=== PATIENT | male | born 1945 | race Caucasian/White ===

== ENCOUNTER 2018-08-15 00:58 | Emergency (ER) | payer OTHER ==
[2018-08-15 01:14] VITALS: TEMP 98.2; BMI 26.6
--- NOTE | 2018-08-15 03:00 | PDOC ---
History of Present Illness - General Chief Complaint: Back Pain Stated Complaint: LOW BACK PAIN Time Seen by Provider: 08/15/18 02:59 History Source: Patient Exam Limitations: No Limitations - History of Present Illness Initial Comments: Pt is a 73 yo M, with PMH of DM, HTN, HLD, CVA, and CKD stage 4, who is presenting with complaints of lower back pain after standing from his recliner. Pt states just before presentation, he was attempting to stand up from out of his recliner, and felt a "pulling" sensation through his lower back. The pt was able to use his cane to stand up, and called EMS as he felt very uncomfortable from pain. He did not take any medications prior to arrival. Pt states a few weeks ago, he fell, hitting the top of his head. At [facility], he received MRIs of the head and spine, which showed only arthritic and chronic disc changes. Because of the chronic arthritis, he was concerned that the strain in his back may be related today. Pt denies any recent fevers/chills, headache, vision changes, syncope, chest pain, palpitations, SOB, nausea/vomiting, abdominal pain , urinary symptoms, diarrhea/constipation, or leg swelling. Pt lives in assisted living ([facility]) on his own. Social: Pt denies any alcohol or drug use. Remote hx of smoking (~20 years ago). Pt denies any recent travel or sick contacts. Surgical: repair of perforated colon (remote hx) Family: no relevant history 08/15/18 04:59 Past History - Travel Traveled outside of the country in the last 30 days: No Close contact w/someone who was outside of country & ill: No - Past Medical History Allergies/Adverse Reactions: Allergies Allergy/AdvReac Type Severity Reaction Status Date / Time Sulfa (Sulfonamide Allergy Verified 08/15/18 02:59 Antibiotics) Home Medications: Ambulatory Orders Acetaminophen 325 mg PO QID PRN 08/15/18 Amlodipine Besylate 10 mg PO DAILY 08/15/18 Ammonium Lactate Lotion [Lac-Hydrin 12% Lotion -] 1 applic TP BID 08/15/18 Aspirin [ASA -] 81 mg PO DAILY 08/15/18 Atorvastatin Ca [Lipitor] 10 mg PO HS 08/15/18 Clopidogrel Bisulfate [Plavix] 75 mg PO DAILY 08/15/18 Clotrimazole [Lotrimin 1% Solution -] 1 applic TP BID 08/15/18 Cyclobenzaprine HCl [Flexeril 10 mg] 10 mg PO DAILY PRN #14 tablet 08/15/18 Folic Acid 1 mg PO DAILY 08/15/18 Guaifenesin [Siltussin SA] 300 mg PO QID PRN 08/15/18 Hydralazine HCl 25 mg PO TID 08/15/18 Insulin Aspart [Novolog] 100 unit SQ AC PRN 08/15/18 Labetalol HCl 100 mg PO BID 08/15/18 Losartan Potassium [Cozaar -] 25 mg PO DAILY 08/15/18 Omeprazole 20 mg PO DAILY 08/15/18 Silodosin [Rapaflo] 8 mg PO DAILY 08/15/18 Triamcinolone Acetonide [Kenalog] 63 gm TP BID 08/15/18 Vortioxetine Hydrobromide [Trintellix] 10 mg PO DAILY 08/15/18 COPD: No Dementia: Yes Diabetes: Yes HTN: Yes Hypercholesterolemia: Yes Other medical history: CKD - Surgical History Abdominal Surgery: Yes (perforated colon) GI Surgery: Yes (perforated colon) Neurologic Surgery: No Orthopedic Surgery: No - Suicide/Smoking/Psychosocial Hx Smoking History: Never smoked Have you smoked in the past 12 months: No Information on smoking cessation initiated: No Hx Alcohol Use: No Drug/Substance Use Hx: No Review of Systems - Review of Systems Able to Perform ROS?: Yes Is the patient limited [place] proficient: No Constitutional: Yes: Weight Stable. No: Chills, Diaphoresis, Fever, Loss of Appetite, Weakness HEENTM: No: Blurred Vision, Double Vision, Nose Congestion, Hearing Loss, Difficulty Swallowing Respiratory: No: Cough, Orthopnea, Shortness of Breath Cardiac (ROS): No: Chest Pain, Edema, Irregular Heart Rate, Lightheadedness, Palpitations, Syncope, Chest Tightness ABD/GI: No: Abdominal Distended, Constipated, Diarrhea, Nausea, Poor Appetite, Poor Fluid Intake, Vomiting, Abdominal cramping : No: Burning, Dysuria, Frequency, Hematuria, Pain, Urgency Musculoskeletal: Yes: See HPI, Back Pain. No: Joint Pain, Joint Swelling, Muscle Pain, Muscle Weakness, Neck Pain Integumentary: No: Rash Neurological: No: Headache, Numbness, Paresthesia, Tingling, Weakness, Unsteady Gait, Ataxia, Dizziness Psychiatric: No: Sleep Pattern Change, Change in Appetite Endocrine: No: Increased Urine, Change in Weight Hematologic/Lymphatic: No: Anemia, Blood Clots, Easy Bleeding, Easy Bruising All Other Systems: Reviewed and Negative *Physical Exam - Vital Signs Last Vital Signs Temp Pulse Resp BP Pulse Ox 98.2 F 66 18 146/61 98 08/15/18 01:13 08/15/18 01:13 08/15/18 01:13 08/15/18 01:13 08/15/18 01:13 - Physical Exam General Appearance: Yes: Nourished, Appropriately Dressed, Apparent Distress HEENT: positive: EOMI, JONAH, Normal ENT Inspection, Normal Voice, Pharynx Normal , Hearing Grossly Normal. negative: Scleral Icterus (R), Scleral Icterus (L), Pharyngeal Erythema, Tonsillar Exudate, Tonsillar Erythema, Rhinorrhea Neck: positive: Trachea midline, Normal Thyroid, Supple. negative: Tender, Rigid, Decreased range of motion, Lymphadenopathy (R), Lymphadenopathy (L), Rigidity Respiratory/Chest: positive: Lungs Clear, Normal Breath Sounds. negative: Chest Tender, Respiratory Distress, Accessory Muscle Use, Crackles, Wheezing Cardiovascular: positive: Regular Rhythm, Regular Rate, S1, S2. negative: Edema , JVD, Murmur Vascular Pulses: Carotid (R): 4+, Carotid (L): 4+ Gastrointestinal/Abdominal: positive: Normal Bowel Sounds, Flat, Soft. negative : Tender, Organomegaly, Pulsatile Mass, Distended, Guarding, Rebound Rectal Exam: positive: deferred Lymphatic: negative: Adenopathy, Tenderness Musculoskeletal: positive: Normal Inspection, Decreased Range of Motion ( minimal flexion and extension at the hip due to spasm), Muscle Spasm (spasm in lower back). negative: CVA Tenderness, Vertebral Tenderness (no midline spinal tenderness, no CVA tenderness. ) Extremity: positive: Normal Capillary Refill, Normal Inspection, Normal Range of Motion, Pelvis Stable. negative: Tender, Pedal Edema Integumentary: positive: Normal Color, Dry, Warm. negative: Jaundice, Clammy, Diaphoresis, Rash Neurologic: positive: pin chaser II-XII NML intact, Fully Oriented, Alert, Normal Mood/ Affect, Normal Response, Motor Strength 5/5, Facial Droop (mild L sided facial droop (residual deficit from prior CVA, per pt)). negative: Numbness, Sensory Deficit Moderate Sedation - Procedure Monitoring Vital Signs: Procedure Monitoring Vital Signs Temperature 98.2 F 08/15/18 01:13 Pulse Rate 66 08/15/18 01:13 Respiratory Rate 18 08/15/18 01:13 Blood Pressure 146/61 08/15/18 01:13 O2 Sat by Pulse Oximetry (%) 98 08/15/18 01:13 Medical Decision Making - Medical Decision Making Pt was seen at bedside, also will be seen by attending Dr. Garay. Pt presenting with complaints of lower back pain after standing from his recliner. Pt states just before presentation, he was attempting to stand up from out of his recliner , and felt a "pulling" sensation through his lower back. The pt was able to use his cane to stand up, and called EMS as he felt very uncomfortable from pain. He did not take any medications prior to arrival. Pt states a few weeks ago, he fell, hitting the top of his head. At [facility], he received MRIs of the head and spine, which showed only arthritic and chronic disc changes. Because of the chronic arthritis, he was concerned that the strain in his back may be related today. Pt denies any recent fevers/chills, headache, vision changes, syncope, chest pain, palpitations, SOB, nausea/vomiting, abdominal pain, urinary symptoms , diarrhea/constipation, or leg swelling. PE showed stable vitals, pt sitting up in the bed with back straight. Muscle spasm induced on exam. No cervical or midline spinal tenderness. Muscle strength and sensation intact in all extremities. Heart and lung sounds clear. Considering muscle spasm vs lumbar muscular strain. Minimal concern for fracture , due to mechanism and pt had recent MRI of spine and head with only chronic arthritic changes. Provided 650 mg PO tylenol, 5 mg PO valium, and lidoderm patch for improvement of pain and spasm. Will continue to reassess pt and monitor for symptomatic improvement. 08/15/18 03:40 Pt mobility improving, still experiencing some spasms. Will provide one dose of 15 mg IM toradol for improvement of pain. Will reassess. 08/15/18 04:56 08/15/18 05:14 Pt still with difficulty ambulating (not normal for pt baseline). Ordered lumbosacral x-ray to r/o fracture. 08/15/18 06:05 X-ray (read with Dr. Garay in ER) showed no obvious acute fractures, appears to be arthritic changes. Sending flexeril to pt pharmacy. Pt can be discharged to home with follow-up. Pt advised to follow-up with PCP in 1-2 days. Strict return precautions provided with pt understanding. 08/15/18 07:03 *DC/Admit/Observation/Transfer Diagnosis at time of Disposition: Back spasm Lumbar strain Qualifiers: Encounter type: initial encounter Qualified Code(s): S39.012A - Strain of muscle, fascia and tendon of lower back, initial encounter - Discharge Dispostion Disposition: HOME Condition at time of disposition: Improved Decision to Admit order: No - Prescriptions Prescriptions: Cyclobenzaprine HCl [Flexeril 10 mg] 10 mg PO DAILY PRN #14 tablet PRN Reason: Back Pain - Referrals Referrals: Vinayak Mcclendon MD [Primary Care Provider] - [facility] [place] [facility] [place] [Provider Group] - Patient Instructions Printed Discharge Instructions: DI for Back Strain or Sprain Additional Instructions: You were seen in the ER today for back pain. The results of your imaging today showed chronic arthritic changes in your back. Please follow-up with your primary care doctor within 1-2 days to discuss your visit and make sure your symptoms have improved. Please return to the ER if you have any worsening pain, development of fevers or chills, numbness or tingling in your extremities, bowel or urine incontinence, loss of consciousness, inability to tolerate food or fluids, or any other concerns. I have sent flexeril to your pharmacy for back spasm. This medication may make you drowsy as we discussed. Please take this medication as prescribed. - Post Discharge Activity
[2018-08-15] MEDS ORDERED: CYCLOBENZAPRINE HCL 10 MG TABLET (FP) PO ONE (03:26)
[2018-08-15] MEDS ORDERED: ACETAMINOPHEN 325 MG TABLET (FP) PO ONE (03:26)
[2018-08-15] MEDS ORDERED: LIDOCAINE 5% TOPICAL PATCH TP ONE (03:40)
[2018-08-15] MEDS ORDERED: diazePAM 5 MG TABLET PO ONE (03:40)
--- NOTE | 2018-08-15 04:50 | PDOC ---
Attending Attestation - Resident Resident Name: Lisa Fung - ED Attending Attestation I have performed the following: I have examined & evaluated the patient, The case was reviewed & discussed with the resident, I agree w/resident's findings & plan - HPI HPI: 08/15/18 05:30 73YOM, with a significant past medical history of dementia, CVA, CKD, HTN, who presents to the emergency department with, lower back pain. Patient notes he was trying to get up from a reclining chair when he felt a pulling sensation in his lower back, prompting him to call EMS. Patient was recently evaluated at [facility] where he received a MRI of his back with only pertinent finding of arthritic changes, He denies any recent fevers, chills, headache or dizziness. He denies any recent nausea, vomit, diarrhea or constipation. He denies any recent chest pain or shortness of breath. He denies any recent dysuria, frequency, urgency or hematuria. Allergies: Sulfa Primary Care Physician: Dr. Mcclendon - Physicial Exam PE: 08/15/18 05:30 NAD, well appearing, MMM, nl conjunctiva, anicteric; neck supple. lungs clear, RRR, abdomen soft nontender. +lower lumbosacral TTP, +spasms. GARCIA x4, no focal neuro deficits. No peripheral edema. normal color for ethnicity, WWP. - Medical Decision Making 08/15/18 05:31 hpi as documented. VS wnl. analgesia with topical lido, toradol, tylenol and valium for spasms improved movement, improved ROM no focal neuro deficits. no red flag sx to suggest cord pathology. no trauma, so doubt fx. most likely msk. Xray L-S spine: degenerative changes, no compression deformities. though limited views were obtained. however doubt fx, as no trauma or fall. rx tylenol PRN pain, flexeril for muscle spasm and topical lidoderm Pt informed of my clinical impression, treatment recommendations and disposition plan. All questions answered to patient's satisfaction and expressed understanding and comfort with this. Reasons for returning to the ED sooner discussed with the patient otherwise, follow up with primary care physician. At the time of discharge, the patient is alert, clinically improved, tolerating po and verbalizes understanding of instructions. Patient does not suffer from an acute life-threatening medical condition at this time she is safe for outpatient follow-up. 08/15/18 06:19 08/15/18 23:07
[2018-08-15] MEDS ORDERED: KETOROLAC TROMETHAMINE 15 MG/ML VIAL IM ONE (04:52)
[2018-08-15 08:08] VITALS: BP 159/80; PULSE 72
[2018-08-15] MEDS ORDERED: LIDOCAINE PATCH REMOVAL MC SCH (22:00)
== END 2018-08-15 08:00 | disposition home or self-care (01) ==
LOC: JER 00:58
PROC: 3E0333Z Introduction of Anti-inflammatory into Peripheral Vein, Percutaneous Approach (ICD-10-PCS; principal; 2018-08-15)
DX: M62.830 Muscle spasm of back (principal); I10 Essential (primary) hypertension; E11.9 Type 2 diabetes mellitus without complications; E78.00 Pure hypercholesterolemia, unspecified; Z86.73 Personal history of transient ischemic attack (TIA), and cerebral infarction without residual deficits
CPT/HCPCS: 72100-TC-FY; 96372; 99282-25

== ENCOUNTER 2019-04-03 20:53 | Emergency (ER) | payer OTHER ==
[2019-04-03 21:28] VITALS: TEMP 98.4; BMI 25.6
--- NOTE | 2019-04-03 21:31 | PDOC ---
History of Present Illness - General Chief Complaint: Diarrhea Stated Complaint: DIARRHEA Time Seen by Provider: 04/03/19 21:30 History Source: Patient Exam Limitations: No Limitations - History of Present Illness Initial Comments: Pt is a 73 yo M, with PMH of DM, HTN, HLD, CVA, CKD, and depression, who is presenting via EMS from half-way for complaints of 1 episode of loose brown stool. Pt states he was seen at [facility] last night, after a few days of constipation and straining. Pt states he was given an enema an mag citrate, which gave him a loose brown BM this morning, relieving his abdominal pain. Pt states he was sent to the ER from the half-way, as he did not wish to get up from the bed and take his medication, due to concerns that he may have diarrhea. Pt denies any fevers/chills, headache, vision changes, syncope, chest pain, palpitations, SOB, nausea/vomiting, abdominal pain, urinary symptoms , blood in the stool, or leg swelling. Allergies: NKDA PCP: Danelle Social: Pt denies any cigarette, alcohol, or drug use. Pt denies any recent travel or sick contacts. Surgical: perforated colon repair (remote) Family: no relevant history. 04/04/19 00:10 Past History - Travel Traveled outside of the country in the last 30 days: No Close contact w/someone who was outside of country & ill: No - Past Medical History Allergies/Adverse Reactions: Allergies Allergy/AdvReac Type Severity Reaction Status Date / Time Sulfa (Sulfonamide Allergy Verified 08/15/18 02:59 Antibiotics) Home Medications: Ambulatory Orders Acetaminophen 325 mg PO QID PRN 08/15/18 Amlodipine Besylate 10 mg PO DAILY 08/15/18 Ammonium Lactate Lotion [Lac-Hydrin 12% Lotion -] 1 applic TP BID 08/15/18 Aspirin [ASA -] 81 mg PO DAILY 08/15/18 Atorvastatin Ca [Lipitor] 10 mg PO HS 08/15/18 Clopidogrel Bisulfate [Plavix] 75 mg PO DAILY 08/15/18 Clotrimazole [Lotrimin 1% Solution -] 1 applic TP BID 08/15/18 Cyclobenzaprine HCl [Flexeril 10 mg] 10 mg PO DAILY PRN #14 tablet 08/15/18 Folic Acid 1 mg PO DAILY 08/15/18 Guaifenesin [Siltussin SA] 300 mg PO QID PRN 08/15/18 Hydralazine HCl 25 mg PO TID 08/15/18 Insulin Aspart [Novolog] 100 unit SQ AC PRN 08/15/18 Labetalol HCl 100 mg PO BID 08/15/18 Losartan Potassium [Cozaar -] 25 mg PO DAILY 08/15/18 Omeprazole 20 mg PO DAILY 08/15/18 Silodosin [Rapaflo] 8 mg PO DAILY 08/15/18 Triamcinolone Acetonide [Kenalog] 63 gm TP BID 08/15/18 Vortioxetine Hydrobromide [Trintellix] 10 mg PO DAILY 08/15/18 COPD: No Dementia: Yes Diabetes: Yes HTN: Yes Hypercholesterolemia: Yes - Surgical History Abdominal Surgery: Yes (perforated colon) GI Surgery: Yes (perforated colon) Neurologic Surgery: No Orthopedic Surgery: No - Immunization History Immunization Up to Date: No - Suicide/Smoking/Psychosocial Hx Smoking History: Former smoker Have you smoked in the past 12 months: No If you are a former smoker, when did you quit?: 1989 Information on smoking cessation initiated: No Hx Alcohol Use: No Drug/Substance Use Hx: No Abd/GI Specific PMHX - Complaint Specific PMHX Colitis: Yes Diverticulitis: No Gall Bladder Disease: No Irritable Bowel Synd (IBS): No GI Ulcer Disease: No Review of Systems - Review of Systems Able to Perform ROS?: Yes Is the patient limited [place] proficient: No Constitutional: Yes: Weight Stable. No: Chills, Diaphoresis, Fever, Loss of Appetite, Malaise, Weakness HEENTM: No: Blurred Vision, Double Vision, Nose Congestion, Throat Pain, Throat Swelling, Difficulty Swallowing Respiratory: No: Cough, Orthopnea, Shortness of Breath Cardiac (ROS): No: Chest Pain, Edema, Irregular Heart Rate, Lightheadedness, Palpitations, Syncope, Chest Tightness ABD/GI: Yes: See HPI, Constipated, Diarrhea. No: Abdominal Distended, Nausea, Poor Appetite, Poor Fluid Intake, Vomiting, Abdominal cramping : No: Burning, Dysuria, Frequency, Flank Pain, Pain, Urgency Musculoskeletal: No: Back Pain, Joint Pain, Muscle Pain, Muscle Weakness Integumentary: No: Rash Neurological: No: Headache, Numbness, Weakness, Unsteady Gait, Dizziness Psychiatric: No: Sleep Pattern Change, Change in Appetite Endocrine: No: Increased Urine, Change in Weight Hematologic/Lymphatic: No: Anemia, Blood Clots, Easy Bleeding, Easy Bruising All Other Systems: Reviewed and Negative *Physical Exam - Vital Signs Last Vital Signs Temp Pulse Resp BP Pulse Ox 98.4 F 64 20 185/75 H 100 04/03/19 21:20 04/03/19 21:20 04/03/19 21:20 04/03/19 21:20 04/03/19 21:20 - Physical Exam Comments: HTN (185/75), pt afebrile. Pt in NAD, normal body habitus. Pt alert and oriented x3. tapper helper generally intact, muscular strength and sensation intact. No midline spinal tenderness, step-offs, or crepitus. Head normocephalic, atraumatic. Eyes PERRLA, EOMI. Oropharynx without erythema or exudates, no LAD b/l. No nasal congestion, hearing intact. Clear heart sounds, S1/S2, no JVD, b/l pedal edema, or heart murmur. Clear lung sounds, no respiratory distress, wheezes, crackles, or accessory muscle use. No abdominal or CVA tenderness to palpation, no rebound, no guarding. Abdomen soft, non-distended, and with normoactive bowel sounds. Abdominal exam benign. Skin without jaundice or rash. 04/04/19 00:29 Medical Decision Making - Medical Decision Making Pt was seen at bedside, also will be seen by attending Dr. Girard. Pt presenting with 1 episode of diarrhea post taking enema and Mg citrate. Pt was sent to ER due to not taking medications, but states his abdominal discomfort and constipation has entirely resolved. Pt also stated he had an IV left in his arm from [facility] which was removed here. Asymptomatic hypertension (no chest pain, headache, vision changes). Provided home dose of PO amlodipine and PO atorvastatin for improvement. Pt able to return to half-way. Called for ambulance and awaiting transport. 04/04/19 00:51 *DC/Admit/Observation/Transfer Diagnosis at time of Disposition: Diarrhea Qualifiers: Diarrhea type: infectious Qualified Code(s): A09 - Infectious gastroenteritis and colitis, unspecified - Discharge Dispostion Disposition: ASSISTED FACILITY Condition at time of disposition: Good Decision to Admit order: No - Referrals Referrals: Vinayak Mcclendon MD [Primary Care Provider] - - Patient Instructions Printed Discharge Instructions: DI for Diarrhea and Traveler's Diarrhea -- Adult Additional Instructions: You were seen in the ER today for diarrhea after taking an enema yesterday. We have provided some of your blood pressure and high cholesterol medications today. Please follow-up with your primary care doctor [and referral doctors] within 1-2 days to discuss your visit and make sure your symptoms have improved. Please return to the ER if you have any worsening abdominal pain, blood in your bowel movements, development of fevers or chills, loss of consciousness, inability to tolerate food or fluids, or any other concerns. - Post Discharge Activity
[2019-04-03] MEDS ORDERED: ATORVASTATIN CA 10 MG TABLET (FP) PO ONE (21:49)
[2019-04-03] MEDS ORDERED: amLODIPine BESYLATE 10 MG TABLET (FP) PO ONE (21:49)
[2019-04-03] MEDS ORDERED: amLODIPine BESYLATE 5 MG TABLET (FP) ONE (22:22)
[2019-04-03] MEDS ORDERED: ATORVASTATIN CA 40 MG TABLET (FP) ONE (22:25)
[2019-04-03] MEDS ORDERED: ATORVASTATIN CA 10 MG TABLET (FP) ONE (22:30)
--- NOTE | 2019-04-03 22:50 | PDOC ---
Documentation entered by Samson Tristan SCRIBE, acting as scribe for Patricio Peralta MD. Patricio Peralta MD: This documentation has been prepared by the Kun soriano Elijah, SCRIBE, under my direction and personally reviewed by me in its entirety. I confirm that the documentation accurately reflects all work, treatment, procedures, and medical decision making performed by me. Attending Attestation - Resident Resident Name: Lisa Fung - ED Attending Attestation I have performed the following: I have examined & evaluated the patient, The case was reviewed & discussed with the resident, I agree w/resident's findings & plan - HPI HPI: 04/03/19 22:40 Patient is a 73 year old male with a significant past medical history of dementia, DM, HTN, and HLD who presents to the ED with diarrhea. Patient was seen yesterday, received an enema and has had diarrhea since. Patient was discharged with an IV still in his arm. Allergies: Sulfa PCP: Dr. Mcclendon - Physicial Exam PE: 04/03/19 22:48 Patient is awake and alert, well-appearing, in no distress Normocephalic, atraumatic PERRLA, EOMI No scleral icterus mmm cta Abdomen is soft, nontender, nondistended, no palpable hernias - Medical Decision Making 04/03/19 22:48 Patient is a well-appearing 73-year-old male with multiple comorbidities who was referred from assisted living facility for several episodes of loose stools after receiving an enema as treatment of constipation. In the ER, patient is noted to be hypertensive (patient did not receive his antihypertensive medication prior to arrival), with serial abdominal exams revealing no focal tenderness to palpation. No acute issues are present. Patient will receive his p.m. hypertension medication and will be discharged to the assisted-living facility for further care.
[2019-04-04 00:09] VITALS: PULSE 72
[2019-04-04 01:45] VITALS: BP 185/71
== END 2019-04-04 01:52 ==
LOC: JER 20:53
DX: A09 Infectious gastroenteritis and colitis, unspecified (principal); Z87.891 Personal history of nicotine dependence; I10 Essential (primary) hypertension; E11.9 Type 2 diabetes mellitus without complications
CPT/HCPCS: 99281-25

== ENCOUNTER 2019-07-12 10:19 | Observation (INO) | payer OTHER ==
--- NOTE | 2019-07-12 10:38 | PDOC ---
History of Present Illness - General Stated Complaint: FALL Time Seen by Provider: 07/12/19 10:37 - History of Present Illness Initial Comments: 07/12/19 11:27 HPI: 73 y/o M with hx of IDDM, HTN, HLD, CVA, CKD, colonic perforation s/p partial colectomy and ostomy s/p reversal BIBEMS from assisted living facility for unwitnessed fall and possible syncopal event. Patient states he woke up on the floor after being down for an unknown amount of time. He states he thinks he tried getting up out of bed this morning and that his legs gave out under him but cannot recall for sure. A staff member found him and was able to help him up. He also reports LH today that he did not have yesterday. He does report some minimal pain at the back of his head but does not know if he hit his head. He denies headache, dizziness, neck pain, chest pain, seizure, tongue lac, incontinence, abd pain, n/v, dysuria, change in vision. He reports SOB at baseline and his breathing status is unchanged. He also reports left hand pain that he thinks may have gotten when he braced his fall. He also denies fever, chills, cough PMHx: as noted above ROS: as noted SHx: Denies tobacco use; no alcohol use; no rec drugs Allergies: sulfa PCP: Dr Vinayak Mcclendon ROS: GENERAL/CONSTITUTIONAL: No fever or chills. No weakness. HEAD, EYES, EARS, NOSE AND THROAT: No change in vision. No ear pain or discharge. No sore throat. CARDIOVASCULAR: No chest pain; +shortness of breath RESPIRATORY: No cough, wheezing, or hemoptysis. GASTROINTESTINAL: No nausea, vomiting, diarrhea or constipation. GENITOURINARY: No dysuria, frequency, or change in urination. MUSCULOSKELETAL: No joint or muscle swelling or pain. No neck or back pain. SKIN: No rash NEUROLOGIC: No headache, vertigo, loss of consciousness, or change in strength/ sensation. ENDOCRINE: No increased thirst. No abnormal weight change HEMATOLOGIC/LYMPHATIC: No anemia, easy bleeding, or history of blood clots. ALLERGIC/IMMUNOLOGIC: No hives or skin allergy. PE: GENERAL: Awake, alert, and fully oriented, no acute distress HEAD: No signs of trauma, normocephalic, atraumatic, nontender EYES: EOMI, sclera anicteric, conjunctiva clear ENT: Auricles normal inspection, hearing grossly normal, nares patent, oropharynx clear without exudates. Moist mucosa NECK: Normal ROM, no lymphadenopathy, no midline ttp LUNGS: No increased work of breathing, symmetrical chest rise, wheezes in BL upper lobes but no crackles HEART: Regular rate and rhythm, normal S1 and S2, systolic murmur, peripheral pulses 2+ and equal bilaterally. trace LE edema ABDOMEN: Soft, nondistended, nontender, normoactive bowel sounds. No guarding, no rebound. No masses. No CVAT EXTREMITIES: Normal inspection, Normal range of motion, no edema. No clubbing or cyanosis. NEUROLOGICAL: Cranial nerves II through XII grossly intact. Normal speech, normal gait, no focal sensorimotor deficits SKIN: Warm, Dry, normal turgor, no rashes or lesions noted Past History - Past Medical History Allergies/Adverse Reactions: Allergies Allergy/AdvReac Type Severity Reaction Status Date / Time Sulfa (Sulfonamide Allergy Verified 08/15/18 02:59 Antibiotics) Home Medications: Ambulatory Orders Acetaminophen 325 mg PO QID PRN 08/15/18 Amlodipine Besylate 10 mg PO DAILY 08/15/18 Ammonium Lactate Lotion [Lac-Hydrin 12% Lotion -] 1 applic TP BID 08/15/18 Aspirin [ASA -] 81 mg PO DAILY 08/15/18 Atorvastatin Ca [Lipitor] 10 mg PO HS 08/15/18 Clopidogrel Bisulfate [Plavix] 75 mg PO DAILY 08/15/18 Clotrimazole [Lotrimin 1% Solution -] 1 applic TP BID 08/15/18 Cyclobenzaprine HCl [Flexeril 10 mg] 10 mg PO DAILY PRN #14 tablet 08/15/18 Folic Acid 1 mg PO DAILY 08/15/18 Guaifenesin [Siltussin SA] 300 mg PO QID PRN 08/15/18 Hydralazine HCl 25 mg PO TID 08/15/18 Insulin Aspart [Novolog] 100 unit SQ AC PRN 08/15/18 Labetalol HCl 100 mg PO BID 08/15/18 Losartan Potassium [Cozaar -] 25 mg PO DAILY 08/15/18 Omeprazole 20 mg PO DAILY 08/15/18 Silodosin [Rapaflo] 8 mg PO DAILY 08/15/18 Triamcinolone Acetonide [Kenalog] 63 gm TP BID 08/15/18 Vortioxetine Hydrobromide [Trintellix] 10 mg PO DAILY 08/15/18 COPD: No Dementia: Yes Diabetes: Yes HTN: Yes Hypercholesterolemia: Yes - Surgical History Abdominal Surgery: Yes (perforated colon) GI Surgery: Yes (perforated colon) Neurologic Surgery: No Orthopedic Surgery: No - Immunization History Immunization Up to Date: No - Psycho Social/Smoking Cessation Hx Smoking History: Former smoker Have you smoked in the past 12 months: No If you are a former smoker, when did you quit?: 1989 Hx Alcohol Use: No Drug/Substance Use Hx: No ED Treatment Course - LABORATORY CBC & Chemistry Diagram: 07/12/19 11:38 07/12/19 11:38 Medical Decision Making - Medical Decision Making 07/12/19 11:38 73 y/o M with hx of IDDM, HTN, HLD, CVA, CKD, COPD, colonic perforation s/p partial colectomy and ostomy s/p reversal BIBEMS from assisted living facility for unwitnessed fall and possible syncopal event. BP 170/65 HR 67 O2 97%. PE with BL UL wheezing and new systolic murmur not previously documented and patient reporting has never been told of having. DDx including CVA, ACS, arrythmia, aortic stenosis, lyte abnormalities, infection -cbc, cmp, cardiac profile, ekg, cxr, ua, ct head 07/12/19 13:36 CT head: no acute pathology CXR: no acute pathology ekg: nsr, nl intervals, no pradip/d will admit for syncopal workup under Dr Echols to tele Discharge - Discharge Information Problems reviewed: Yes Clinical Impression/Diagnosis: Syncope Qualifiers: Syncope type: unspecified Qualified Code(s): R55 - Syncope and collapse Condition: Stable - Admission Yes - Follow up/Referral Referrals: Vinayak Mcclendon MD [Primary Care Provider] - - Patient Discharge Instructions - Post Discharge Activity
[2019-07-12] MEDS ORDERED: PT OWN MED DRAWER 7, Y5N ONE (11:44)
[2019-07-12 11:53] LABS: BASO % 0.8 % (0-2.0); EOS % 7.3 % (0-4.5); HEMATOCRIT 24.9 % (35.4-49); HEMOGLOBIN 8.7 GM/dL (11.7-16.9); LYMPH % 14.4 % (8-40); MCHC 34.9 g/dl (32.0-35.9); MEAN CELL VOLUME 94.5 fl (80-96); MEAN PLT VOLUME 9.2 fl (7.5-11.1); MONO % 7.4 % (3.8-10.2); NEUT % 70.1 % (42.8-82.8); PLATELET COUNT 101 K/MM3 (134-434); RBC 2.64 M/mm3 (4.00-5.60); RDW 15.4 % (11.9-15.9); WHITE BLOOD COUNT 5.2 K/mm3 (4.0-10.0)
[2019-07-12 12:10] LABS: INR 1.07 (0.83-1.09); PROTHROMBIN TIME (PATIENT) 12.6 SEC (9.7-13.0)
[2019-07-12 12:13] LABS: ACTIVATED PTT 34.3 SECONDS (25.2-36.5)
[2019-07-12 12:20] LABS: ALBUMIN 3.3 g/dl (3.4-5.0); BILIRUBIN,TOTAL 0.3 mg/dL (0.2-1); BLOOD UREA NITROGEN 50.1 mg/dL (7-18); CALCIUM 8.5 mg/dL (8.5-10.1); POTASSIUM 4.9 mmol/L (3.5-5.1)
[2019-07-12 12:23] LABS: MAGNESIUM 1.9 mg/dL (1.8-2.4); PHOSPHOROUS 3.2 mg/dL (2.5-4.9)
--- NOTE | 2019-07-12 14:43 | PDOC ---
Documentation entered by Sarwat Tunrer SCRIBE, acting as scribe for Judit Leon MD. Judit Leon MD: This documentation has been prepared by the Johnny soriano Xhesika, SCRIBE, under my direction and personally reviewed by me in its entirety. I confirm that the documentation accurately reflects all work, treatment, procedures, and medical decision making performed by me. Attending Attestation - Resident Resident Name: Shanique Amor - HPI HPI: 07/12/19 11:12 The patient is a 63 year old male, with a significant past medical history of dementia, DM, HTN, HLD, CVA, CKD, and depression who presents to the emergency department BIBA from longterm with L hand pain and lightheadedness s/p unwitnessed fall. Patient notes he was down for an unknown period of time, however, the nurse found him on the ground and he was able to get up. Pt does not recall what happened, but he thinks he tried to get up in the morning and his legs gave out. Patient reports SOB at baseline. Pt ambulates with a walker at baseline. The patient denies chest pain, headache and dizziness. Denies fever , chills, cough, nausea, vomiting, diarrhea and constipation. Denies dysuria, frequency, urgency and hematuria. Allergies: sulfa (sulfonamide antibiotics) Surgical Hx: perforated colon repair (remote) PCP: Jose A - Physicial Exam PE: 07/12/19 12:25 GENERAL: Awake, alert, and fully oriented, in no acute distress HEAD: No signs of trauma LUNGS: + diffuse wheezing bilaterally. No crackles HEART: + 2/6 cystolic murmur. Regular rate and rhythm, no rubs or gallops ABDOMEN: Soft, nontender, normoactive bowel sounds. No guarding, no rebound. No masses EXTREMITIES: Normal range of motion, no edema. No clubbing or cyanosis. No cords, erythema, or tenderness NEUROLOGICAL: Cranial nerves II through XII grossly intact. SKIN: Warm, Dry, normal turgor, no rashes or lesions noted. - Medical Decision Making 07/12/19 14:23 Pt presents to the ED after awakening on the floor today--fall vs syncope. + systolic murmur that is apparently new. Given the new murmur and his extensive comorbidities, will admit to medicine for syncope eval and ECHO.
[2019-07-12] MEDS ORDERED: SENNOSIDES 8.6MG TABLET (FP) PO PRN (15:37)
[2019-07-12] MEDS ORDERED: ALBUTEROL SO4 0.042% IH SOL 1.25 MG/3 ML VIAL.NEB NEB PRN (15:37)
[2019-07-12] MEDS ORDERED: ACETAMINOPHEN 325 MG TABLET (FP) PO PRN (15:37)
--- NOTE | 2019-07-12 15:56 | HP ---
<VickyJoradna - Last Filed: 07/12/19 18:15> Hospitalist Medicine 73 y/o M with PMH IDDM, HTN, HLD, CVA ("few yrs ago"), hx CKD, lymphoma of L chest, R and LUE (tx with rituxan, still on tx; oncologist [facility] Dr. Nabil Edmond), who presents from [facility] after possible unwitnessed fall. Per pt, he found himself on the floor and next noticed that an aid was in the room. States that he heard opening and closing doors, then was able to get himself up on his own. Unsure whether he had LOC, did not have a prodrome; no chest pain, no recent illnesses recently, has had appropriate PO intake recently. Endorses L hand pain, which he thinks is from bracing himself during the fall. He is not sure whether it was mechanical or if he passed out. Currently, only endorses a "twisting feeling in his abdomen." Otherwise, without CANO, chills, SOB, chest pain or pressure or changes in urinary or bowel function. Has lived at [facility] for the past five months. Sometimes ambulates using a walker. Has seen a insect control inspector previously, but does not know why. PMH: as above PsxH: past colostomy reversal s/p perforation, appendectomy meds: as in chart; verified with [facility] allergies:sulfa- rash FH: father - s/p CABG SH: lives at [facility]. used to smoke; quit 30 yrs ago. denies alcohol or drug use Allergies: Sulfa (Sulfonamide Antibiotics) Allergy (Verified 08/15/18 02:59) HOME MEDICATIONS: Home Medications Medication Instructions Recorded Acetaminophen 325 mg PO QID PRN 08/15/18 Amlodipine Besylate 10 mg PO DAILY 08/15/18 Ammonium Lactate Lotion 1 applic TP BID 08/15/18 [Lac-Hydrin 12% Lotion -] Aspirin [ASA -] 81 mg PO DAILY 08/15/18 Atorvastatin Ca [Lipitor] 10 mg PO HS 08/15/18 Clopidogrel Bisulfate [Plavix] 75 mg PO DAILY 08/15/18 Clotrimazole [Lotrimin 1% Solution 1 applic TP BID 08/15/18 -] Cyclobenzaprine HCl [Flexeril 10 10 mg PO DAILY PRN #14 tablet 08/15/18 mg] Folic Acid 1 mg PO DAILY 08/15/18 Guaifenesin [Siltussin SA] 300 mg PO QID PRN 08/15/18 Hydralazine HCl 25 mg PO TID 08/15/18 Insulin Aspart [Novolog] 100 unit SQ AC PRN 08/15/18 Labetalol HCl 100 mg PO BID 08/15/18 Losartan Potassium [Cozaar -] 25 mg PO DAILY 08/15/18 Omeprazole 20 mg PO DAILY 08/15/18 Silodosin [Rapaflo] 8 mg PO DAILY 08/15/18 Triamcinolone Acetonide [Kenalog] 63 gm TP BID 08/15/18 Vortioxetine Hydrobromide 20 mg PO DAILY 08/15/18 [Trintellix] Albuterol Sulfate 0.042% [Ventolin 1 amp Q4H PRN 07/12/19 0.042% (Half-Strength) -] Bisacodyl [Gentle Laxative] 5 mg PO DAILY 07/12/19 Darbepoetin Eulalio in Polysorbat 40 mg WEEKLY 07/12/19 [Aranesp] Famotidine 20 mg PO DAILY 07/12/19 Insulin (Levemir) [Levemir Vial] 50 unit SQ DAILY 07/12/19 Ipratropium/Albuterol Sulfate 4 gm IH QID 07/12/19 [Combivent Respimat Inhal [place]] Melatonin/Pyridoxine HCl (B6) 5 mg PO DAILY 07/12/19 [Melatonin 5 mg Tablet] Risperidone 0.25 mg PO BID 07/12/19 Sennosides [Senna] 8.6 mg PO DAILY PRN 07/12/19 PHYSICAL EXAMINATION Vital Signs - 24 hr 07/12/19 07/12/19 10:20 11:30 Temperature 97.9 F Pulse Rate 67 Respiratory 17 Rate Blood Pressure 170/65 O2 Sat by Pulse 98 100 Oximetry (%) General: resting comfortably in bed, in NAD HEENT: NCAT, PERRLA neck: supple cardio: S1, S2 RRR. no r/m/g Pulm: CTA b/l. no accessory m usage abdomen: +point tenderness RLQ, RUQ. TTP, however no guarding or rigidity UE: +R: mass felt under axilla, non-ttp LE: 2+ pulses, no edema neuro: dry plasterer helper 2-12 grossly intact msk: +TTP over L thumb, dorsal aspect affect: appropriate Laboratory Results - last 24 hr 07/12/19 07/12/19 07/12/19 11:38 11:38 11:38 WBC 5.2 RBC 2.64 L Hgb 8.7 L Hct 24.9 L MCV 94.5 MCH 33.0 MCHC 34.9 RDW 15.4 Plt Count 101 L MPV 9.2 Absolute Neuts (auto) 3.7 Neutrophils % 70.1 Lymphocytes % 14.4 Monocytes % 7.4 Eosinophils % 7.3 H Basophils % 0.8 Nucleated RBC % 0 PT with INR 12.60 INR 1.07 PTT (Actin FS) 34.3 Sodium Potassium Chloride Carbon Dioxide Anion Gap BUN Creatinine Est GFR (CKD-EPI)AfAm Est GFR (CKD-EPI)NonAf Random Glucose Calcium Phosphorus 3.2 Magnesium 1.9 Total Bilirubin AST ALT Alkaline Phosphatase Creatine Kinase 66 Troponin I < 0.02 Total Protein Albumin 07/12/19 11:38 WBC RBC Hgb Hct MCV MCH MCHC RDW Plt Count MPV Absolute Neuts (auto) Neutrophils % Lymphocytes % Monocytes % Eosinophils % Basophils % Nucleated RBC % PT with INR INR PTT (Actin FS) Sodium 140 Potassium 4.9 Chloride 114 H Carbon Dioxide 24 Anion Gap 3 L BUN 50.1 H Creatinine 3.0 H Est GFR (CKD-EPI)AfAm 22.51 Est GFR (CKD-EPI)NonAf 19.42 Random Glucose 151 H Calcium 8.5 Phosphorus Magnesium Total Bilirubin 0.3 AST 12 L ALT 28 Alkaline Phosphatase 65 Creatine Kinase Troponin I Total Protein 6.0 L Albumin 3.[address]: no evidence of hemorrhage, edema, midline shift or mass effect. 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 CXR: (-) for acute change EKG: NSR, TN 172ms, qtc 405ms. no acute st-t wave changes ASSESSMENT/PLAN: 73 y/o M with PMH IDDM, HTN, HLD, CVA ("few yrs ago"), hx CKD, lymphoma of L chest, R and LUE (tx with rituxan, still on tx; oncologist [facility] Dr. Nabil Edmond), who presents from [facility] after possible unwitnessed fall. Per pt, he found himself on the floor and next noticed that an aid was in the room. #s/p fall: mechanical vs. syncopal -unclear whether mechanical vs. syncopal, was unwitnessed -without prodrome -CTH (-) for bleed, however w/ postischemic encephalomalacia -may also be 2/2 polypharmacy, will also avoid sedating medications such as melatonin, flexeril -f/u orthostatic VS (prior to IVF) -f/u ECHO, carotid duplex -cardio consult: Dr. Sands -neuro consult: Dr. Wallace -c/w IVF -fall precautions, seizure precautions -f/u L hand/wrist XR to check for fx -trop (-) x1, f/u repeat -tele monitoring to check for events #Abdominal pain, hx past perforation -f/u CTAP w/o contrast - to check for pathology -no pulsation, rare however AAA can cause fall #hx lymphoma L chest, R and LUE -tx with Rituxan, to cont tx with onc at [facility] -follows with Dr. Nabil Edmond #CKD -c/w gentle IVF -recheck Cr in AM #HTN- uncontrolled -c/w losartan, labetalol, hydralazine #Hx CVA -c/w asa, statin -c/w plavix #HLD -c/w statin #IDDM -f/u A1c -ISS, BGM ACHS -on levemir 50 u sq at home -f/u FS while admitted, then reinitiate levemir at approp dose #F/E/N IV LR 75 cc/hr continue to follow lytes sodium controlled/diabetic diet #PPX DVT: SCD's #Dispo tele-obs Visit type - Emergency Visit Emergency Visit: Yes ED Registration Date: 07/12/19 Care time: The patient presented to the Emergency Department on the above date and was hospitalized for further evaluation of their emergent condition. - New Patient This patient is new to me today: Yes Date on this admission: 07/12/19 - Critical Care Critical Care patient: No <Antonio Echols - Last Filed: 07/14/19 08:54> CHIEF COMPLAINT: PCP: HISTORY OF PRESENT ILLNESS: ER course was notable for: (1) (2) (3) Recent Travel: PAST MEDICAL HISTORY: PAST SURGICAL HISTORY: Social History: Smoking: Alcohol: Drugs: Allergies Sulfa (Sulfonamide Antibiotics) Allergy (Verified 08/15/18 02:59) HOME MEDICATIONS: Home Medications Medication Instructions Recorded Acetaminophen 325 mg PO QID PRN 08/15/18 Amlodipine Besylate 10 mg PO DAILY 08/15/18 Aspirin [ASA -] 81 mg PO DAILY 08/15/18 Atorvastatin Ca [Lipitor] 10 mg PO HS 08/15/18 Clopidogrel Bisulfate [Plavix] 75 mg PO DAILY 08/15/18 Clotrimazole [Lotrimin 1% Solution 1 applic TP DAILY 08/15/18 -] Folic Acid 1 mg PO DAILY 08/15/18 Hydralazine HCl 25 mg PO TID 08/15/18 Insulin Aspart [Novolog] 100 unit SQ AC PRN 08/15/18 Labetalol HCl 100 mg PO BID 08/15/18 Silodosin [Rapaflo] 8 mg PO DAILY 08/15/18 Triamcinolone Acetonide [Kenalog] 63 gm TP BID 08/15/18 Vortioxetine Hydrobromide 20 mg PO DAILY 08/15/18 [Trintellix] Albuterol Sulfate 0.042% [Ventolin 1 inh IH Q4H PRN 07/12/19 0.042% (Half-Strength) -] Bisacodyl [Gentle Laxative] 5 mg PO DAILY 07/12/19 Darbepoetin Eulalio in Polysorbat 40 mg WEEKLY 07/12/19 [Aranesp] Famotidine 20 mg PO DAILY 07/12/19 Insulin (Levemir) [Levemir Vial] 50 unit SQ DAILY 07/12/19 Ipratropium/Albuterol Sulfate 4 gm IH QID 07/12/19 [Combivent Respimat Inhal [place]] Melatonin/Pyridoxine HCl (B6) 5 mg PO HS 07/12/19 [Melatonin 5 mg Tablet] Risperidone 0.25 mg PO BID 07/12/19 Sennosides [Senna] 8.6 mg PO DAILY PRN 07/12/19 REVIEW OF SYSTEMS CONSTITUTIONAL: Absent: fever, chills, diaphoresis, generalized weakness, malaise, loss of appetite, weight change HEENT: Absent: rhinorrhea, nasal congestion, throat pain, throat swelling, difficulty swallowing, mouth swelling, ear pain, eye pain, visual changes CARDIOVASCULAR: Absent: chest pain, syncope, palpitations, irregular heart rate, lightheadedness , peripheral edema RESPIRATORY: Absent: cough, shortness of breath, dyspnea with exertion, orthopnea, wheezing, stridor, hemoptysis GASTROINTESTINAL: Absent: abdominal pain, abdominal distension, nausea, vomiting, diarrhea, constipation, melena, hematochezia GENITOURINARY: Absent: dysuria, frequency, urgency, hesitancy, hematuria, flank pain, genital pain MUSCULOSKELETAL: Absent: myalgia, arthralgia, joint swelling, back pain, neck pain SKIN: Absent: rash, itching, pallor HEMATOLOGIC/IMMUNOLOGIC: Absent: easy bleeding, easy bruising, lymphadenopathy, frequent infections ENDOCRINE: Absent: unexplained weight gain, unexplained weight loss, heat intolerance, cold intolerance NEUROLOGIC: Absent: headache, focal weakness or paresthesias, dizziness, unsteady gait, seizure, mental status changes, bladder or bowel incontinence PSYCHIATRIC: Absent: anxiety, depression, suicidal or homicidal ideation, hallucinations. PHYSICAL EXAMINATION Vital Signs - 24 hr 07/12/19 07/12/19 07/12/19 10:20 11:30 18:53 Temperature 97.9 F 98.1 F Pulse Rate 67 66 Respiratory 17 15 Rate Blood Pressure 170/65 189/73 H O2 Sat by Pulse 98 100 Oximetry (%) 07/12/19 07/12/19 07/12/19 19:35 22:00 23:17 Temperature 98.7 F Pulse Rate 72 70 Respiratory 20 20 Rate Blood Pressure 166/76 158/74 O2 Sat by Pulse 99 Oximetry (%) 07/13/19 07/13/19 02:00 05:53 Temperature 97.6 F 97.9 F Pulse Rate 65 65 Respiratory 20 20 Rate Blood Pressure 158/74 155/62 O2 Sat by Pulse Oximetry (%) GENERAL: Awake, alert, and fully oriented, in no acute distress. HEAD: Normal with no signs of trauma. EYES: Pupils equal, round and reactive to light, extraocular movements intact, sclera anicteric, conjunctiva clear. No lid lag. EARS, NOSE, THROAT: Ears normal, nares patent, oropharynx clear without exudates. Moist mucous membranes. NECK: Normal range of motion, supple without lymphadenopathy, JVD, or masses. LUNGS: Breath sounds equal, clear to auscultation bilaterally. No wheezes, and no crackles. No accessory muscle use. HEART: Regular rate and rhythm, normal S1 and S2 without murmur, rub or gallop. ABDOMEN: Soft, nontender, not distended, normoactive bowel sounds, no guarding, no rebound, no masses. No hepatomegaly or splenomegaly. MUSCULOSKELETAL: Normal range of motion at all joints. No bony deformities or tenderness. No CVA tenderness. UPPER EXTREMITIES: 2+ pulses, warm, well-perfused. No cyanosis. No clubbing. No peripheral edema. LOWER EXTREMITIES: 2+ pulses, warm, well-perfused. No calf tenderness. No peripheral edema. NEUROLOGICAL: Cranial nerves II-XII intact. Normal speech. Normal gait. PSYCHIATRIC: Cooperative. Good eye contact. Appropriate mood and affect. SKIN: Warm, dry, normal turgor, no rashes or lesions noted, normal capillary refill. Laboratory Results - last 24 hr 07/12/19 07/12/19 07/12/19 11:38 11:38 11:38 WBC 5.2 RBC 2.64 L Hgb 8.7 L Hct 24.9 L MCV 94.5 MCH 33.0 MCHC 34.9 RDW 15.4 Plt Count 101 L MPV 9.2 Absolute Neuts (auto) 3.7 Neutrophils % 70.1 Lymphocytes % 14.4 Monocytes % 7.4 Eosinophils % 7.3 H Basophils % 0.8 Nucleated RBC % 0 PT with INR 12.60 INR 1.07 PTT (Actin FS) 34.3 Sodium Potassium Chloride Carbon Dioxide Anion Gap BUN Creatinine Est GFR (CKD-EPI)AfAm Est GFR (CKD-EPI)NonAf POC Glucometer Random Glucose Hemoglobin A1c % Calcium Phosphorus 3.2 Magnesium 1.9 Total Bilirubin AST ALT Alkaline Phosphatase Creatine Kinase 66 Troponin I < 0.02 Total Protein Albumin TSH Thyroxine (T4) Resin T3 Uptake Urine Color Urine Appearance Urine pH Ur Specific [place] Urine Protein Urine Glucose (UA) Urine Ketones Urine Blood Urine Nitrite Urine Bilirubin Urine Urobilinogen Ur Leukocyte Esterase Urine WBC (Auto) Urine RBC (Auto) Urine Casts (Auto) U Epithel Cells (Auto) Urine Bacteria (Auto) 07/12/19 07/12/19 07/12/19 11:38 17:48 18:10 WBC RBC Hgb Hct MCV MCH MCHC RDW Plt Count MPV Absolute Neuts (auto) Neutrophils % Lymphocytes % Monocytes % Eosinophils % Basophils % Nucleated RBC % PT with INR INR PTT (Actin FS) Sodium 140 Potassium 4.9 Chloride 114 H Carbon Dioxide 24 Anion Gap 3 L BUN 50.1 H Creatinine 3.0 H Est GFR (CKD-EPI)AfAm 22.51 Est GFR (CKD-EPI)NonAf 19.42 POC Glucometer 129 Random Glucose 151 H Hemoglobin A1c % Calcium 8.5 Phosphorus Magnesium Total Bilirubin 0.3 AST 12 L ALT 28 Alkaline Phosphatase 65 Creatine Kinase Troponin I Total Protein 6.0 L Albumin 3.3 L TSH Thyroxine (T4) Resin T3 Uptake Urine Color Yellow Urine Appearance Clear Urine pH 7.0 Ur Specific [place] 1.013 Urine Protein 3+ H Urine Glucose (UA) Trace Urine Ketones Negative Urine Blood Negative Urine Nitrite Negative Urine Bilirubin Negative Urine Urobilinogen 0.2 Ur Leukocyte Esterase Negative Urine WBC (Auto) 0 Urine RBC (Auto) 2 Urine Casts (Auto) 0 U Epithel Cells (Auto) 0.5 Urine Bacteria (Auto) 1.4 07/12/19 07/12/19 07/12/19 20:10 20:10 20:10 WBC RBC Hgb Hct MCV MCH MCHC RDW Plt Count MPV Absolute Neuts (auto) Neutrophils % Lymphocytes % Monocytes % Eosinophils % Basophils % Nucleated RBC % PT with INR INR PTT (Actin FS) Sodium Potassium Chloride Carbon Dioxide Anion Gap BUN Creatinine Est GFR (CKD-EPI)AfAm Est GFR (CKD-EPI)NonAf POC Glucometer Random Glucose Hemoglobin A1c % < 3.5 L Calcium Phosphorus Magnesium Total Bilirubin AST ALT Alkaline Phosphatase Creatine Kinase Troponin I < 0.02 Total Protein Albumin TSH 2.75 Thyroxine (T4) 7.2 Resin T3 Uptake 34.3 Urine Color Urine Appearance Urine pH Ur Specific [place] Urine Protein Urine Glucose (UA) Urine Ketones Urine Blood Urine Nitrite Urine Bilirubin Urine Urobilinogen Ur Leukocyte Esterase Urine WBC (Auto) Urine RBC (Auto) Urine Casts (Auto) U Epithel Cells (Auto) Urine Bacteria (Auto) 07/12/19 07/13/19 22:01 06:18 WBC RBC Hgb Hct MCV MCH MCHC RDW Plt Count MPV Absolute Neuts (auto) Neutrophils % Lymphocytes % Monocytes % Eosinophils % Basophils % Nucleated RBC % PT with INR INR PTT (Actin FS) Sodium Potassium Chloride Carbon Dioxide Anion Gap BUN Creatinine Est GFR (CKD-EPI)AfAm Est GFR (CKD-EPI)NonAf POC Glucometer 104 110 Random Glucose Hemoglobin A1c % Calcium Phosphorus Magnesium Total Bilirubin AST ALT Alkaline Phosphatase Creatine Kinase Troponin I Total Protein Albumin TSH Thyroxine (T4) Resin T3 Uptake Urine Color Urine Appearance Urine pH Ur Specific [place] Urine Protein Urine Glucose (UA) Urine Ketones Urine Blood Urine Nitrite Urine Bilirubin Urine Urobilinogen Ur Leukocyte Esterase Urine WBC (Auto) Urine RBC (Auto) Urine Casts (Auto) U Epithel Cells (Auto) Urine Bacteria (Auto) ASSESSMENT/PLAN: Presenting with syncope; r/o cardiogenic vs. neurogenic component. Stable. No issues today. Pending CV and neuro consults monitor on tele. Discussed with resident team. Full Code ATTENDING PHYSICIAN STATEMENT I saw and evaluated the patient. I reviewed the resident's note and discussed the case with the resident. I agree with the resident's findings and plan as documented. SUBJECTIVE: OBJECTIVE: ASSESSMENT AND PLAN:
[2019-07-12] MEDS: LACTATED RINGERS SOLUTION 1,000 ML/1,000 ML INFUS.BAG IV SCH (17:39)
[2019-07-12] MEDS ORDERED: amLODIPine BESYLATE 5 MG TABLET (FP) ONE (17:40)
[2019-07-12] MEDS: INSULIN SLIDING SCALE (NOVOLOG) 1 VIAL SQ SCH ×2 (17:50→22:02)
[2019-07-12 18:38] LABS: EPI CELLS 0.5 /HPF (0-5/HPF); HYALINE CASTS 0 /lpf (0-8); URINE APPEARANCE CLEAR; URINE BACTERIA 1.4 /hpf (NEGATIVE); URINE BILIRUBIN NEGATIVE (NEGATIVE); URINE COLOR YELLOW; URINE GLUCOSE (UA) TRACE (NEGATIVE); URINE KETONE NEGATIVE (NEGATIVE); URINE LEUK ESTERASE NEGATIVE (NEGATIVE); URINE NITRITE NEGATIVE (NEGATIVE); URINE PROTEIN 3+ (NEGATIVE); URINE RBC 2 /hpf (0-4); URINE UROBILINOGEN 0.2 mg/dL (0.2-1.0); URINE WBC 0 /hpf (0-5)
[2019-07-12] MEDS: ALBUTEROL SO4 2.5/IPRATROPIUM 0.5 INH SOL 3 ML VIAL.NEB. NEB SCH (20:40)
[2019-07-12 20:57] VITALS: BMI 24.4
[2019-07-12] MEDS: hydrALAZINE HCL 25 MG TABLET (FP) PO SCH (21:53)
[2019-07-12] MEDS: ATORVASTATIN CA 10 MG TABLET (FP) PO SCH (21:54)
[2019-07-12] MEDS: LABETALOL HCL 100 MG TABLET (FP) PO SCH (21:54)
[2019-07-12] MEDS: risperiDONE 0.25 MG TABLET (FP) PO SCH (21:54)
[2019-07-12] MEDS: MELATONIN 5 MG TABLETS PO PRN (22:48)
[2019-07-13] MEDS: hydrALAZINE HCL 25 MG TABLET (FP) PO SCH ×4 (06:17→20:59)
[2019-07-13] MEDS: LACTATED RINGERS SOLUTION 1,000 ML/1,000 ML INFUS.BAG IV SCH (06:21)
[2019-07-13] MEDS: INSULIN SLIDING SCALE (NOVOLOG) 1 VIAL SQ SCH ×4 (06:22→20:59)
--- NOTE | 2019-07-13 07:12 | PN ---
Physical Exam: SUBJECTIVE: Patient seen and examined; pending cardiology and neurology consultation. 10 sys ROS done and negative aside from HPI OBJECTIVE: Vital Signs Period Temp Pulse Resp BP Sys/Alfaro Pulse Ox Last 24 Hr 97.6 F-98.7 F 65-72 15-20 155-189/62-76 98-100 GENERAL: The patient is awake, alert, and fully oriented, in no acute distress. HEAD: Normal with no signs of trauma. EYES: PERRL, extraocular movements intact, sclera anicteric, conjunctiva clear. No ptosis. ENT: Ears normal, nares patent, oropharynx clear without exudates, moist mucous membranes. NECK: Trachea midline, full range of motion, supple. LUNGS: Breath sounds equal, clear to auscultation bilaterally, no wheezes, no crackles, no accessory muscle use. HEART: Regular rate and rhythm, S1, S2 without murmur, rub or gallop. ABDOMEN: Soft, nontender, nondistended, normoactive bowel sounds, no guarding, no rebound, no hepatosplenomegaly, no masses. EXTREMITIES: 2+ pulses, warm, well-perfused, no edema. NEUROLOGICAL: Cranial nerves II through XII grossly intact. Normal speech, gait not observed. Chronic L-sided mild weakness noted. PSYCH: Normal mood, normal affect. SKIN: Warm, dry, normal turgor, no rashes or lesions noted Laboratory Results - last 24 hr 07/12/19 07/12/19 07/12/19 11:38 11:38 11:38 WBC 5.2 RBC 2.64 L Hgb 8.7 L Hct 24.9 L MCV 94.5 MCH 33.0 MCHC 34.9 RDW 15.4 Plt Count 101 L MPV 9.2 Absolute Neuts (auto) 3.7 Neutrophils % 70.1 Lymphocytes % 14.4 Monocytes % 7.4 Eosinophils % 7.3 H Basophils % 0.8 Nucleated RBC % 0 PT with INR 12.60 INR 1.07 PTT (Actin FS) 34.3 Sodium Potassium Chloride Carbon Dioxide Anion Gap BUN Creatinine Est GFR (CKD-EPI)AfAm Est GFR (CKD-EPI)NonAf POC Glucometer Random Glucose Hemoglobin A1c % Calcium Phosphorus 3.2 Magnesium 1.9 Total Bilirubin AST ALT Alkaline Phosphatase Creatine Kinase 66 Troponin I < 0.02 Total Protein Albumin TSH Thyroxine (T4) Resin T3 Uptake Urine Color Urine Appearance Urine pH Ur Specific [place] Urine Protein Urine Glucose (UA) Urine Ketones Urine Blood Urine Nitrite Urine Bilirubin Urine Urobilinogen Ur Leukocyte Esterase Urine WBC (Auto) Urine RBC (Auto) Urine Casts (Auto) U Epithel Cells (Auto) Urine Bacteria (Auto) 07/12/19 07/12/19 07/12/19 11:38 17:48 18:10 WBC RBC Hgb Hct MCV MCH MCHC RDW Plt Count MPV Absolute Neuts (auto) Neutrophils % Lymphocytes % Monocytes % Eosinophils % Basophils % Nucleated RBC % PT with INR INR PTT (Actin FS) Sodium 140 Potassium 4.9 Chloride 114 H Carbon Dioxide 24 Anion Gap 3 L BUN 50.1 H Creatinine 3.0 H Est GFR (CKD-EPI)AfAm 22.51 Est GFR (CKD-EPI)NonAf 19.42 POC Glucometer 129 Random Glucose 151 H Hemoglobin A1c % Calcium 8.5 Phosphorus Magnesium Total Bilirubin 0.3 AST 12 L ALT 28 Alkaline Phosphatase 65 Creatine Kinase Troponin I Total Protein 6.0 L Albumin 3.3 L TSH Thyroxine (T4) Resin T3 Uptake Urine Color Yellow Urine Appearance Clear Urine pH 7.0 Ur Specific [place] 1.013 Urine Protein 3+ H Urine Glucose (UA) Trace Urine Ketones Negative Urine Blood Negative Urine Nitrite Negative Urine Bilirubin Negative Urine Urobilinogen 0.2 Ur Leukocyte Esterase Negative Urine WBC (Auto) 0 Urine RBC (Auto) 2 Urine Casts (Auto) 0 U Epithel Cells (Auto) 0.5 Urine Bacteria (Auto) 1.4 07/12/19 07/12/19 07/12/19 20:10 20:10 20:10 WBC RBC Hgb Hct MCV MCH MCHC RDW Plt Count MPV Absolute Neuts (auto) Neutrophils % Lymphocytes % Monocytes % Eosinophils % Basophils % Nucleated RBC % PT with INR INR PTT (Actin FS) Sodium Potassium Chloride Carbon Dioxide Anion Gap BUN Creatinine Est GFR (CKD-EPI)AfAm Est GFR (CKD-EPI)NonAf POC Glucometer Random Glucose Hemoglobin A1c % < 3.5 L Calcium Phosphorus Magnesium Total Bilirubin AST ALT Alkaline Phosphatase Creatine Kinase Troponin I < 0.02 Total Protein Albumin TSH 2.75 Thyroxine (T4) 7.2 Resin T3 Uptake 34.3 Urine Color Urine Appearance Urine pH Ur Specific [place] Urine Protein Urine Glucose (UA) Urine Ketones Urine Blood Urine Nitrite Urine Bilirubin Urine Urobilinogen Ur Leukocyte Esterase Urine WBC (Auto) Urine RBC (Auto) Urine Casts (Auto) U Epithel Cells (Auto) Urine Bacteria (Auto) 07/12/19 07/13/19 22:01 06:18 WBC RBC Hgb Hct MCV MCH MCHC RDW Plt Count MPV Absolute Neuts (auto) Neutrophils % Lymphocytes % Monocytes % Eosinophils % Basophils % Nucleated RBC % PT with INR INR PTT (Actin FS) Sodium Potassium Chloride Carbon Dioxide Anion Gap BUN Creatinine Est GFR (CKD-EPI)AfAm Est GFR (CKD-EPI)NonAf POC Glucometer 104 110 Random Glucose Hemoglobin A1c % Calcium Phosphorus Magnesium Total Bilirubin AST ALT Alkaline Phosphatase Creatine Kinase Troponin I Total Protein Albumin TSH Thyroxine (T4) Resin T3 Uptake Urine Color Urine Appearance Urine pH Ur Specific [place] Urine Protein Urine Glucose (UA) Urine Ketones Urine Blood Urine Nitrite Urine Bilirubin Urine Urobilinogen Ur Leukocyte Esterase Urine WBC (Auto) Urine RBC (Auto) Urine Casts (Auto) U Epithel Cells (Auto) Urine Bacteria (Auto) Active Medications Generic Name Dose Route Start Last Admin Trade Name Freq PRN Reason Stop Dose Admin Acetaminophen 325 mg 07/12/19 15:37 Tylenol - PO Q6H PRN PAIN LEVEL 7-10 Albuterol Sulfate 1 amp 07/12/19 15:37 Ventolin 0.042trength) - NEB Q4H PRN SHORTNESS OF BREATH Albuterol/Ipratropium 1 amp 07/12/19 20:00 07/12/19 20:40 Duoneb - NEB 1 amp RQID POOJA Administration Amlodipine Besylate 10 mg 07/12/19 15:37 Norvasc - PO DAILY [facility] Aspirin 81 mg 07/13/19 10:00 Asa - PO DAILY [facility] Atorvastatin Calcium 10 mg 07/12/19 22:00 07/12/19 21:54 Lipitor - PO 10 mg HS POOJA Administration Bisacodyl 5 mg 07/13/19 10:00 Dulcolax - PO DAILY [facility] Clopidogrel Bisulfate 75 mg 07/13/19 10:00 Plavix - PO DAILY [facility] Famotidine 20 mg 07/13/19 10:00 Pepcid - PO DAILY POOJA Folic Acid 1 mg 07/13/19 10:00 Folic Acid - PO DAILY [facility] Hydralazine HCl 25 mg 07/12/19 22:00 07/13/19 06:21 Apresoline - PO 25 mg TID POOJA Administration Lactated Ringer's 1,000 ml in 1,000 mls @ 75 mls/hr 07/12/19 15:45 07/13/19 06:21 Lactated Ringers Solution IV 75 mls/hr ASDIR POOJA Administration Insulin Aspart 1 vial 07/12/19 16:30 07/13/19 06:22 Novolog Vial Sliding Scale - SQ Not Given ACHS POOJA Protocol Labetalol HCl 100 mg 07/12/19 22:00 07/12/19 21:54 Normodyne - PO 100 mg BID POOJA Administration Losartan Potassium 25 mg 07/13/19 10:00 Cozaar - PO DAILY POOJA Melatonin 5 mg 07/12/19 22:24 07/12/19 22:48 Melatonin PO 5 mg HS PRN Administration INSOMNIA Non-Formulary Medication 20 mg 07/13/19 10:00 Vortioxetine Hydrobromide [Trintellix] PO DAILY POOJA Risperidone 0.25 mg 07/12/19 22:00 07/12/19 21:54 Risperdal - PO 0.25 mg BID POOJA Administration Senna 1 tab 07/12/19 15:37 Senna - PO DAILY PRN CONSTIPATION Tamsulosin HCl 0.4 mg 07/13/19 08:30 Flomax - PO DAILY@0830 POOJA -Orthostatics: -Echo: -MRI: -EEG Pending; cannot be completed on weekends. ASSESSMENT/PLAN: There are no new complaints noted. No further syncopal episodes noted. I am informed the EEGs cannot be performed over the weekend. He can get the study on Monday and follow-up nonurgently with Neuro -R.O syncope bvs. mechanical fall. Less likely seizure-EEG likely tomorrow and FU with neuro. 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 Nabil Edmond at [facility]; on rituxan) -Deconditioning (PT Consulted for gait training) Full Code Visit type - Emergency Visit Emergency Visit: Yes ED Registration Date: 07/12/19 Care time: The patient presented to the Emergency Department on the above date and was hospitalized for further evaluation of their emergent condition. - New Patient This patient is new to me today: No - Critical Care Critical Care patient: No
[2019-07-13 08:00] LABS: BILIRUBIN,TOTAL 0.4 mg/dL (0.2-1); BLOOD UREA NITROGEN 43.4 mg/dL (7-18); CALCIUM 8.8 mg/dL (8.5-10.1); CREATININE 2.6 mg/dL (0.55-1.3); PHOSPHOROUS 3.1 mg/dL (2.5-4.9); POTASSIUM 4.3 mmol/L (3.5-5.1); TOT PROT 5.5 g/dl (6.4-8.2)
[2019-07-13] MEDS: ALBUTEROL SO4 2.5/IPRATROPIUM 0.5 INH SOL 3 ML VIAL.NEB. NEB SCH ×4 (08:21→19:45)
[2019-07-13 08:40] LABS: BASO % 0.5 % (0-2.0); EOS % 8.3 % (0-4.5); HEMATOCRIT 22.9 % (35.4-49); HEMOGLOBIN 8.1 GM/dL (11.7-16.9); LYMPH % 17.3 % (8-40); MCH 32.5 pg (25.7-33.7); MCHC 35.3 g/dl (32.0-35.9); MONO % 8.2 % (3.8-10.2); NEUT % 65.7 % (42.8-82.8); PLATELET COUNT 88 K/MM3 (134-434); RBC 2.49 M/mm3 (4.00-5.60); RDW 15.3 % (11.9-15.9); WHITE BLOOD COUNT 4.8 K/mm3 (4.0-10.0)
[2019-07-13] MEDS ORDERED: PATIENT'S OWN MEDICATION (NON-FORMULARY) (Vortioxetine Hydrobromide [Trintellix] 20 MG) PO SCH (10:00)
[2019-07-13] MEDS ORDERED: PT OWN MED DRAWER 7, Y5N ONE ×2 (11:07→20:32)
--- NOTE | 2019-07-13 11:19 | CON.NEURO ---
Consult - Alcohol/Substance Use Hx Alcohol Use: No - Smoking History Smoking history: Former smoker Have you smoked in the past 12 months: No If you are a former smoker, when did you quit?: 1989 Home Medications - Allergies Allergies/Adverse Reactions: Allergies Allergy/AdvReac Type Severity Reaction Status Date / Time Sulfa (Sulfonamide Allergy Verified 08/15/18 02:59 Antibiotics) - Home Medications Home Medications: Ambulatory Orders Acetaminophen 325 mg PO QID PRN 08/15/18 Amlodipine Besylate 10 mg PO DAILY 08/15/18 Aspirin [ASA -] 81 mg PO DAILY 08/15/18 Atorvastatin Ca [Lipitor] 10 mg PO HS 08/15/18 Clopidogrel Bisulfate [Plavix] 75 mg PO DAILY 08/15/18 Clotrimazole [Lotrimin 1% Solution -] 1 applic TP DAILY 08/15/18 Folic Acid 1 mg PO DAILY 08/15/18 Hydralazine HCl 25 mg PO TID 08/15/18 Insulin Aspart [Novolog] 100 unit SQ AC PRN 08/15/18 Labetalol HCl 100 mg PO BID 08/15/18 Silodosin [Rapaflo] 8 mg PO DAILY 08/15/18 Triamcinolone Acetonide [Kenalog] 63 gm TP BID 08/15/18 Vortioxetine Hydrobromide [Trintellix] 20 mg PO DAILY 08/15/18 Albuterol Sulfate 0.042% [Ventolin 0.042% (Half-Strength) -] 1 inh IH Q4H PRN Bisacodyl [Gentle Laxative] 5 mg PO DAILY 07/12/19 Darbepoetin Eulalio in Polysorbat [Aranesp] 40 mg WEEKLY 07/12/19 Famotidine 20 mg PO DAILY 07/12/19 Insulin (Levemir) [Levemir Vial] 50 unit SQ DAILY 07/12/19 Ipratropium/Albuterol Sulfate [Combivent Respimat Inhal [place]] 4 gm IH QID 07/12 Melatonin/Pyridoxine HCl (B6) [Melatonin 5 mg Tablet] 5 mg PO HS 07/12/19 Risperidone 0.25 mg PO BID 07/12/19 Sennosides [Senna] 8.6 mg PO DAILY PRN 07/12/19 Physical Exam-Neuro Vital Signs: Vital Signs Temperature 97.9 F 07/13/19 05:53 Pulse Rate 65 07/13/19 05:53 Respiratory Rate 20 07/13/19 05:53 Blood Pressure 155/62 07/13/19 05:53 O2 Sat by Pulse Oximetry (%) 99 07/12/19 23:17 Labs: CBC, BMP 07/13/19 06:15 07/13/19 06:15 INR, PTT INR 1.07 (0.83-1.09) 07/12/19 11:38 Assessment/Plan cc Episode of passing out HPI 73 yea linad male history of IDDM, HTN, HLD, CVA ("few yrs ago"), hx CKD, lymphoma of L chest, R and LUE (tx with rituxan, still on tx; oncologist [facility] Dr. Nabil Edmond), patient lives in assistated living fascility patient came with fall and LOC. Patient has no tonic clonic seizure like activity. There is no tongue bite or incontinence. Patient is feeling back to [facility]. He did have left sided hemiparesis and he seems to be recovered alot since stroke in past. PMH: as above PsxH: past colostomy reversal s/p perforation, appendectomy FH: father - s/p CABG SH: lives at [facility]. used to smoke; quit 30 yrs ago. denies alcohol or drug use Allergies: Sulfa (Sulfonamide Antibiotics) Allergy (Verified 08/15/18 02:59) HOME MEDICATIONS: Home Medications Medication Instructions Recorded Acetaminophen 325 mg PO QID PRN 08/15/18 Amlodipine Besylate 10 mg PO DAILY 08/15/18 Ammonium Lactate Lotion 1 applic TP BID 08/15/18 [Lac-Hydrin 12% Lotion -] Aspirin [ASA -] 81 mg PO DAILY 08/15/18 Atorvastatin Ca [Lipitor] 10 mg PO HS 08/15/18 Clopidogrel Bisulfate [Plavix] 75 mg PO DAILY 08/15/18 Clotrimazole [Lotrimin 1% Solution 1 applic TP BID 08/15/18 -] Cyclobenzaprine HCl [Flexeril 10 10 mg PO DAILY PRN #14 tablet 08/15/18 mg] Folic Acid 1 mg PO DAILY 08/15/18 Guaifenesin [Siltussin SA] 300 mg PO QID PRN 08/15/18 Hydralazine HCl 25 mg PO TID 08/15/18 Insulin Aspart [Novolog] 100 unit SQ AC PRN 08/15/18 Labetalol HCl 100 mg PO BID 08/15/18 Losartan Potassium [Cozaar -] 25 mg PO DAILY 08/15/18 Omeprazole 20 mg PO DAILY 08/15/18 Silodosin [Rapaflo] 8 mg PO DAILY 08/15/18 Triamcinolone Acetonide [Kenalog] 63 gm TP BID 08/15/18 Vortioxetine Hydrobromide 20 mg PO DAILY 08/15/18 [Trintellix] Albuterol Sulfate 0.042% [Ventolin 1 amp Q4H PRN 07/12/19 0.042% (Half-Strength) -] Bisacodyl [Gentle Laxative] 5 mg PO DAILY 07/12/19 Darbepoetin Eulalio in Polysorbat 40 mg WEEKLY 07/12/19 [Aranesp] Famotidine 20 mg PO DAILY 07/12/19 Insulin (Levemir) [Levemir Vial] 50 unit SQ DAILY 07/12/19 Ipratropium/Albuterol Sulfate 4 gm IH QID 07/12/19 [Combivent Respimat Inhal [place]] Melatonin/Pyridoxine HCl (B6) 5 mg PO DAILY 07/12/19 [Melatonin 5 mg Tablet] Risperidone 0.25 mg PO BID 07/12/19 Sennosides [Senna] 8.6 mg PO DAILY PRN 07/12/19 ROS,SH,FH reviewed in chart NEUROLOGICAL EXAMINATION Alert oriented x 3,speech is normal vss, neck is supple EOMI, pupils reactive no face asymmetry moving all extremity there is very minimal left arm and leg weakness sensation is normal ct head old right mca stroke Assessment/Plan 1. Old Right mca storke with minial left weakness , continue aspirin and statin, carotid ultrasound unremarkable 2. syncope, unlikley to be seizure Plan: continue aspirin and statin - would do an nonurgent eeg, unlikley to be seizure Thanking you so much Bret Wallace MD
--- NOTE | 2019-07-13 11:54 | CON.CARD ---
Consult Consult Specialty:: Cardiology for Dr. Sands Referred by:: Hospitalist Medicine Reason for Consultation:: Syncope - History of Present Illness Chief Complaint: Syncope History of Present Illness: The patient is a 63 year old male, with a significant past medical history of dementia, DM, HTN, HLD, CVA, CKD, lymphoma of L chest, R and LUE (tx with rituxan, still on tx; oncologist [facility] Dr. Nabil Edmond), and depression who presents to the emergency department BIBA from skilled nursing with L hand pain and lightheadedness s/p unwitnessed fall. Patient notes he was found down on floor for an unknown period of time. Pt does not recall what happened or prodromal sxs, but he thinks he tried to get up in the morning and his legs gave out. Patient reports SOB at baseline. Pt ambulates with a walker at baseline. The patient denies chest pain, headache, dizziness, palpitations, orthopnea, PND or LE edema. Denies fever, chills, cough, nausea, vomiting, diarrhea and constipation. Denies dysuria, frequency, urgency and hematuria. PMH: as above PsxH: perforated colon repair (remote), past colostomy reversal s/p perforation , appendectomy Allergies: sulfa (sulfonamide antibiotics) FH: father - s/p CABG SH: lives at [facility]. used to smoke; quit 30 yrs ago. denies alcohol or drug use - History Source History Provided By: Medical Record Limitations to Obtaining History: Poor Historian - Alcohol/Substance Use Hx Alcohol Use: No - Smoking History Smoking history: Former smoker Have you smoked in the past 12 months: No If you are a former smoker, when did you quit?: 1989 Home Medications - Allergies Allergies/Adverse Reactions: Allergies Allergy/AdvReac Type Severity Reaction Status Date / Time Sulfa (Sulfonamide Allergy Verified 08/15/18 02:59 Antibiotics) - Home Medications Home Medications: Ambulatory Orders Acetaminophen 325 mg PO QID PRN 08/15/18 Amlodipine Besylate 10 mg PO DAILY 08/15/18 Aspirin [ASA -] 81 mg PO DAILY 08/15/18 Atorvastatin Ca [Lipitor] 10 mg PO HS 08/15/18 Clopidogrel Bisulfate [Plavix] 75 mg PO DAILY 08/15/18 Clotrimazole [Lotrimin 1% Solution -] 1 applic TP DAILY 08/15/18 Folic Acid 1 mg PO DAILY 08/15/18 Hydralazine HCl 25 mg PO TID 08/15/18 Insulin Aspart [Novolog] 100 unit SQ AC PRN 08/15/18 Labetalol HCl 100 mg PO BID 08/15/18 Silodosin [Rapaflo] 8 mg PO DAILY 08/15/18 Triamcinolone Acetonide [Kenalog] 63 gm TP BID 08/15/18 Vortioxetine Hydrobromide [Trintellix] 20 mg PO DAILY 08/15/18 Albuterol Sulfate 0.042% [Ventolin 0.042% (Half-Strength) -] 1 inh IH Q4H PRN Bisacodyl [Gentle Laxative] 5 mg PO DAILY 07/12/19 Darbepoetin Eulalio in Polysorbat [Aranesp] 40 mg WEEKLY 07/12/19 Famotidine 20 mg PO DAILY 07/12/19 Insulin (Levemir) [Levemir Vial] 50 unit SQ DAILY 07/12/19 Ipratropium/Albuterol Sulfate [Combivent Respimat Inhal [place]] 4 gm IH QID 07/12 Melatonin/Pyridoxine HCl (B6) [Melatonin 5 mg Tablet] 5 mg PO HS 07/12/19 Risperidone 0.25 mg PO BID 07/12/19 Sennosides [Senna] 8.6 mg PO DAILY PRN 07/12/19 Review of Systems - Review of Systems Neurological: reports: Syncope, Unsteady Gait Vital Signs: Vital Signs Temperature 97.9 F 07/13/19 05:53 Pulse Rate 65 07/13/19 05:53 Respiratory Rate 20 07/13/19 05:53 Blood Pressure 155/62 07/13/19 05:53 O2 Sat by Pulse Oximetry (%) 99 07/12/19 23:17 Constitutional: Yes: No Distress, Calm, Thin Neck: Yes: Supple Respiratory: Yes: Regular, CTA Bilaterally Gastrointestinal: Yes: Normal Bowel Sounds, Soft Cardiovascular: Yes: Regular Rate and Rhythm JVD: No Carotid Bruit: No Heart Sounds: Yes: S1, S2 Edema: No - Other Data Labs, Other Data: CBC, BMP 07/13/19 06:15 07/13/19 06:15 INR, PTT INR 1.07 (0.83-1.09) 07/12/19 11:38 Troponin, BNP 07/12/19 07/12/19 11:38 20:10 Troponin I < 0.02 < 0.02 Troponin, BNP 07/12/19 07/12/19 11:38 20:10 Troponin I < 0.02 < 0.02 NSR @ 60 w/o ST-T changes Ejection Fraction %: LVEF > or = 40 % Imaging - Results Chest X-ray: Report Reviewed (NAD) Cat Scan: Report Reviewed (HCT: Old frontal, temporal, parietal lobes with atrophy of roght cerebral peduncle) Problem List - Problems (1) Hypertension Code(s): I10 - ESSENTIAL (PRIMARY) HYPERTENSION Qualifiers: Hypertension type: essential hypertension Qualified Code(s): I10 - Essential (primary) hypertension (2) Hyperlipidemia Code(s): E78.5 - HYPERLIPIDEMIA, UNSPECIFIED Qualifiers: Hyperlipidemia type: pure hypercholesterolemia Qualified Code(s): E78.00 - Pure hypercholesterolemia, unspecified; E78.0 - Pure hypercholesterolemia (3) Type 2 diabetes mellitus Code(s): E11.9 - TYPE 2 DIABETES MELLITUS WITHOUT COMPLICATIONS Qualifiers: Diabetes mellitus [facility] insulin use: with rodent exterminator use (4) H/O: stroke Code(s): Z86.73 - PRSNL HX OF TIA (TIA), AND CEREB INFRC W/O RESID DEFICITS (5) Syncope Code(s): R55 - SYNCOPE AND COLLAPSE Qualifiers: Syncope type: unspecified Qualified Code(s): R55 - Syncope and collapse (6) CKD (chronic kidney disease) Code(s): N18.9 - CHRONIC KIDNEY DISEASE, UNSPECIFIED Qualifiers: Chronic kidney disease stage: stage 4 (severe) Qualified Code(s): N18.4 - Chronic kidney disease, stage 4 (severe) (7) Gait disturbance, post-stroke Code(s): I69.398 - OTHER SEQUELAE OF CEREBRAL INFARCTION; R26.9 - UNSPECIFIED ABNORMALITIES OF GAIT AND MOBILITY Assessment/Plan 07/12/2019 Carotid US: No sig stenosis 1. Possible syncope vs fall and gait disturbance, seizure unlikely 2. Old Right mca storke with minimal left weakness 3. Hypertension 4. Hyperlipidemia 5. IDDM 6. CKD 7. Lymphoma of L chest, R and LUE (tx with rituxan, still on tx; oncologist [facility] Dr. Nabil Edmond) P:1. F/u echocardiogram to assess ventricular and valve fxn 2. Check orthostatic VC 3. Continue Norvasc 10 qd, ASA 81 qd, Lipitor 10 qhs, Plavix 75 qd, labetolol 100 bid, agree with losartan 25 qd once renal fxn stable 4. PT for gait training 5. Thank you for consultative opportunity
[2019-07-13] MEDS: BISACODYL 5 MG TABLET.DR (FP) PO SCH (12:47)
[2019-07-13] MEDS: TAMSULOSIN HCL 0.4 MG CAP PO SCH (12:47)
[2019-07-13] MEDS: FAMOTIDINE 20 MG TABLET PO SCH (12:48)
[2019-07-13] MEDS: FOLIC ACID 1 MG TABLET (FP) PO SCH (12:48)
[2019-07-13] MEDS: risperiDONE 0.25 MG TABLET (FP) PO SCH ×2 (12:53→20:59)
[2019-07-13] MEDS: amLODIPine BESYLATE 10 MG TABLET (FP) PO SCH ×2 (12:54→12:55)
[2019-07-13] MEDS: LOSARTAN POTASSIUM 25 MG TABLET PO SCH (12:54)
[2019-07-13] MEDS: CLOPIDOGREL BISULFATE 75 MG TABLET (FP) PO SCH (12:55)
[2019-07-13] MEDS: LABETALOL HCL 100 MG TABLET (FP) PO SCH ×2 (12:55→20:59)
[2019-07-13] MEDS: ASPIRIN 81 MG CHEWABLE TABLETS PO SCH (12:55)
[2019-07-13] MEDS: ATORVASTATIN CA 10 MG TABLET (FP) PO SCH (20:59)
[2019-07-13] MEDS: MELATONIN 5 MG TABLETS PO PRN (20:59)
[2019-07-14] MEDS: hydrALAZINE HCL 25 MG TABLET (FP) PO SCH ×3 (06:54→21:20)
[2019-07-14] MEDS: LACTATED RINGERS SOLUTION 1,000 ML/1,000 ML INFUS.BAG IV SCH ×2 (06:57→16:09)
[2019-07-14] MEDS: INSULIN SLIDING SCALE (NOVOLOG) 1 VIAL SQ SCH ×4 (07:00→21:20)
[2019-07-14] MEDS: ALBUTEROL SO4 2.5/IPRATROPIUM 0.5 INH SOL 3 ML VIAL.NEB. NEB SCH ×4 (07:52→20:45)
--- NOTE | 2019-07-14 09:58 | PN ---
Progress Note (short form) - Note Progress Note: 73 faina carmen male history of IDDM, HTN, HLD, CVA ("few yrs ago"), hx CKD, lymphoma of L chest, R and LUE (tx with rituxan, still on tx; oncologist [facility] Dr. Nabil Edmond), patient lives in assistated living fascility patient came with fall and LOC. Patient has no tonic clonic seizure like activity. There is no tongue bite or incontinence. Patient is feeling back to [facility]. He did have left sided hemiparesis and he seems to be recovered alot since stroke in past. No new complain and he is feeling better NEUROLOGICAL EXAMINATION Alert oriented x 3,speech is normal vss, neck is supple EOMI, pupils reactive no face asymmetry moving all extremity there is very minimal left arm and leg weakness sensation is normal ct head old right mca stroke Assessment/Plan 1. Old Right mca storke with minial left weakness , continue aspirin and statin, carotid ultrasound unremarkable 2. syncope, unlikley to be seizure Plan: continue aspirin and statin - would do an nonurgent eeg, unlikley to be seizure Thanking you so much Bret Wallace MD
[2019-07-14] MEDS: TAMSULOSIN HCL 0.4 MG CAP PO SCH (11:43)
[2019-07-14] MEDS: LABETALOL HCL 100 MG TABLET (FP) PO SCH ×2 (11:43→21:20)
[2019-07-14] MEDS: CLOPIDOGREL BISULFATE 75 MG TABLET (FP) PO SCH (11:43)
[2019-07-14] MEDS: BISACODYL 5 MG TABLET.DR (FP) PO SCH (11:43)
[2019-07-14] MEDS: amLODIPine BESYLATE 10 MG TABLET (FP) PO SCH (11:43)
[2019-07-14] MEDS: LOSARTAN POTASSIUM 25 MG TABLET PO SCH (11:43)
[2019-07-14] MEDS: FOLIC ACID 1 MG TABLET (FP) PO SCH (11:43)
[2019-07-14] MEDS: FAMOTIDINE 20 MG TABLET PO SCH (11:43)
[2019-07-14] MEDS: ASPIRIN 81 MG CHEWABLE TABLETS PO SCH (11:43)
[2019-07-14] MEDS ORDERED: PT OWN MED DRAWER 7, Y5N ONE ×2 (11:50→20:54)
[2019-07-14] MEDS: risperiDONE 0.25 MG TABLET (FP) PO SCH ×2 (11:52→21:20)
--- NOTE | 2019-07-14 14:06 | PN ---
Physical Exam: SUBJECTIVE: Patient seen and examined; Continues to make good urine. Checking labs this p.m. If they are stable can likely hold off on labs for the rest of the admission and less need arises. Furthermore, the patient remains afebrile and hemodynamically stable with no new complaints noted. No falls or syncopal episodes noted. Neurology recommended EEG which was ordered, cardiology recommended orthostatics and agreed with echocardiogram. Pending echocardiogram , EEG will be completed on Monday. The patient will be continue to monitor on telemetry. We will update his oncologist prior to discharge. Anticipate discharge in the next 24 to 48 hours. Given his ongoing multiple comorbidities we will have PT assess him prior to discharge. OBJECTIVE: Vital Signs Period Temp Pulse Resp BP Sys/Alfaro Pulse Ox Last 24 Hr 97.4 F-98.4 F 54-62 18-20 145-151/55-82 100 GENERAL: The patient is awake, alert, and fully oriented, in no acute distress. HEAD: Normal with no signs of trauma. EYES: PERRL, extraocular movements intact, sclera anicteric, conjunctiva clear. No ptosis. ENT: Ears normal, nares patent, oropharynx clear without exudates, moist mucous membranes. NECK: Trachea midline, full range of motion, supple. LUNGS: Breath sounds equal, clear to auscultation bilaterally, no wheezes, no crackles, no accessory muscle use. HEART: Regular rate and rhythm, S1, S2 without murmur, rub or gallop. ABDOMEN: Soft, nontender, nondistended, normoactive bowel sounds, no guarding, no rebound, no hepatosplenomegaly, no masses. EXTREMITIES: 2+ pulses, warm, well-perfused, no edema. NEUROLOGICAL: Cranial nerves II through XII grossly intact. Normal speech, gait not observed. PSYCH: Normal mood, normal affect. SKIN: Warm, dry, normal turgor, no rashes or lesions noted Laboratory Results - last 24 hr 07/13/19 07/13/19 07/14/19 18:10 20:57 06:10 POC Glucometer 148 137 101 07/14/19 12:26 POC Glucometer 127 Active Medications Generic Name Dose Route Start Last Admin Trade Name Freq PRN Reason Stop Dose Admin Acetaminophen 325 mg 07/12/19 15:37 Tylenol - PO Q6H PRN PAIN LEVEL 7-10 Albuterol Sulfate 1 amp 07/12/19 15:37 Ventolin 0.042trength) - NEB Q4H PRN SHORTNESS OF BREATH Albuterol/Ipratropium 1 amp 07/12/19 20:00 07/14/19 11:46 Duoneb - NEB Not Given RQID POOJA Amlodipine Besylate 10 mg 07/12/19 15:37 07/14/19 11:43 Norvasc - PO 10 mg DAILY POOJA Administration Aspirin 81 mg 07/13/19 10:00 07/14/19 11:43 Asa - PO 81 mg DAILY POOJA Administration Atorvastatin Calcium 10 mg 07/12/19 22:00 07/13/19 20:59 Lipitor - PO 10 mg HS POOJA Administration Bisacodyl 5 mg 07/13/19 10:00 07/14/19 11:43 Dulcolax - PO 5 mg DAILY POOJA Administration Clopidogrel Bisulfate 75 mg 07/13/19 10:00 07/14/19 11:43 Plavix - PO 75 mg DAILY POOJA Administration Famotidine 20 mg 07/13/19 10:00 07/14/19 11:43 Pepcid - PO 20 mg DAILY POOJA Administration Folic Acid 1 mg 07/13/19 10:00 07/14/19 11:43 Folic Acid - PO 1 mg DAILY POOJA Administration Hydralazine HCl 25 mg 07/12/19 22:00 07/14/19 06:54 Apresoline - PO 25 mg TID POOJA Administration Lactated Ringer's 1,000 ml in 1,000 mls @ 75 mls/hr 07/12/19 15:45 07/14/19 06:57 Lactated Ringers Solution IV 75 mls/hr ASDIR POOJA Administration Insulin Aspart 1 vial 07/12/19 16:30 07/14/19 12:26 Novolog Vial Sliding Scale - SQ Not Given ACHS POOJA Protocol Labetalol HCl 100 mg 07/12/19 22:00 07/14/19 11:43 Normodyne - PO 100 mg BID POOJA Administration Losartan Potassium 25 mg 07/13/19 10:00 07/14/19 11:43 Cozaar - PO 25 mg DAILY POOJA Administration Melatonin 5 mg 07/12/19 22:24 07/13/19 20:59 Melatonin PO 5 mg HS PRN Administration INSOMNIA Non-Formulary Medication 20 mg 07/13/19 10:00 Vortioxetine Hydrobromide [Trintellix] PO DAILY POOJA Risperidone 0.25 mg 07/12/19 22:00 07/14/19 11:52 Risperdal - PO 0.25 mg BID POOJA Administration Senna 1 tab 07/12/19 15:37 Senna - PO DAILY PRN CONSTIPATION Tamsulosin HCl 0.4 mg 07/13/19 08:30 07/14/19 11:43 Flomax - PO 0.4 mg DAILY@0830 POOJA Administration -Orthostatics pending for today -Echo: Pending -EEG Pending; cannot be completed on weekends. ASSESSMENT/PLAN: There are no new complaints noted. No further syncopal episodes noted. I am informed the EEGs cannot be performed over the weekend. He can get the study on Monday and follow-up nonurgently with Neuro -R.O syncope bvs. mechanical fall. Less likely seizure-EEG likely tomorrow and FU with neuro. 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 Nabil Edmond at [facility]; on rituxan. Update his primary oncologist prior to DC) -Deconditioning (PT Consulted for gait training) -Chronic normocytic anemia -BPH Full Code Visit type - Emergency Visit Emergency Visit: Yes ED Registration Date: 07/12/19 Care time: The patient presented to the Emergency Department on the above date and was hospitalized for further evaluation of their emergent condition. - New Patient This patient is new to me today: No - Critical Care Critical Care patient: No
[2019-07-14 16:27] LABS: BASO % 0.7 % (0-2.0); EOS % 8.3 % (0-4.5); HEMATOCRIT 20.6 % (35.4-49); HEMOGLOBIN 7.2 GM/dL (11.7-16.9); LYMPH % 18.3 % (8-40); MCH 32.5 pg (25.7-33.7); MEAN CELL VOLUME 92.9 fl (80-96); MEAN PLT VOLUME 8.9 fl (7.5-11.1); MONO % 8.7 % (3.8-10.2); PLATELET COUNT 90 K/MM3 (134-434); RBC 2.21 M/mm3 (4.00-5.60); RDW 15.2 % (11.9-15.9); WHITE BLOOD COUNT 4.3 K/mm3 (4.0-10.0)
[2019-07-14 16:53] LABS: BLOOD UREA NITROGEN 47.5 mg/dL (7-18); CALCIUM 7.8 mg/dL (8.5-10.1); CREATININE 2.8 mg/dL (0.55-1.3); POTASSIUM 4.7 mmol/L (3.5-5.1)
[2019-07-14] MEDS: ATORVASTATIN CA 10 MG TABLET (FP) PO SCH (21:20)
[2019-07-14] MEDS: MELATONIN 5 MG TABLETS PO PRN (21:20)
[2019-07-15] MEDS: hydrALAZINE HCL 25 MG TABLET (FP) PO SCH ×2 (06:38→13:34)
[2019-07-15] MEDS: INSULIN SLIDING SCALE (NOVOLOG) 1 VIAL SQ SCH ×2 (06:38→11:44)
[2019-07-15 06:57] LABS: BASO % 0.6 % (0-2.0); HEMATOCRIT 21.8 % (35.4-49); HEMOGLOBIN 7.8 GM/dL (11.7-16.9); LYMPH % 18.8 % (8-40); MCH 32.7 pg (25.7-33.7); MCHC 35.7 g/dl (32.0-35.9); MEAN CELL VOLUME 91.6 fl (80-96); MEAN PLT VOLUME 8.8 fl (7.5-11.1); NEUT % 63.6 % (42.8-82.8); PLATELET COUNT 97 K/MM3 (134-434); RBC 2.38 M/mm3 (4.00-5.60); WHITE BLOOD COUNT 4.4 K/mm3 (4.0-10.0)
[2019-07-15 07:25] LABS: BLOOD UREA NITROGEN 46.6 mg/dL (7-18); CALCIUM 8.5 mg/dL (8.5-10.1); CREATININE 2.8 mg/dL (0.55-1.3); POTASSIUM 4.2 mmol/L (3.5-5.1)
[2019-07-15] MEDS: ALBUTEROL SO4 2.5/IPRATROPIUM 0.5 INH SOL 3 ML VIAL.NEB. NEB SCH (08:15)
--- NOTE | 2019-07-15 09:24 | PN ---
Progress Note (short form) - Note Progress Note: 73 yebuster carmen male history of IDDM, HTN, HLD, CVA ("few yrs ago"), hx CKD, lymphoma of L chest, R and LUE (tx with rituxan, still on tx; oncologist [facility] Dr. Nabil Edmond), patient lives in assistated living fascility patient came with fall and LOC. Patient has no tonic clonic seizure like activity. There is no tongue bite or incontinence. Patient is feeling back to [facility]. He did have left sided hemiparesis and he seems to be recovered alot since stroke in past. No new complain and he is feeling better, no more dizziness or passing out episode. NEUROLOGICAL EXAMINATION Alert oriented x 3,speech is normal vss, neck is supple EOMI, pupils reactive no face asymmetry moving all extremity there is very minimal left arm and leg weakness sensation is normal ct head old right mca stroke Assessment/Plan 1. Old Right mca storke with minial left weakness , continue aspirin and statin, carotid ultrasound unremarkable 2. syncope, unlikley to be seizure Plan: continue aspirin and statin - waiting for eeg today Thanking you so much Bret Wallace MD
--- NOTE | 2019-07-15 09:55 | PN ---
Progress Note, Physician History of Present Illness: The patient is a 63 year old male, with a significant past medical history of dementia, DM, HTN, HLD, CVA, CKD, lymphoma of L chest, R and LUE (tx with rituxan, still on tx; oncologist [facility] Dr. Nabil Edmond), and depression who presents to the emergency department [facility]IB[facility] from senior living with L hand pain and lightheadedness s/p unwitnessed fall. Patient notes he was found down on floor for an unknown period of time. Pt does not recall what happened or prodromal sxs, but he thinks he tried to get up in the morning and his legs gave out. Patient reports SOB at baseline. Pt ambulates with a walker at baseline. The patient denies chest pain, headache, dizziness, palpitations, orthopnea, PND or LE edema. Denies fever, chills, cough, nausea, vomiting, diarrhea and constipation. Denies dysuria, frequency, urgency and hematuria. - Current Medication List Current Medications: Active Medications Acetaminophen (Tylenol -) 325 mg PO Q6H PRN PRN Reason: PAIN LEVEL 7-10 Albuterol Sulfate (Ventolin 0.042trength) -) 1 amp NEB Q4H PRN PRN Reason: SHORTNESS OF BREATH Albuterol/Ipratropium (Duoneb -) 1 amp NEB RQID [facility] Last Admin: 07/15/19 08:15 Dose: Not Given Amlodipine Besylate (Norvasc -) 10 mg PO DAILY [facility] Last Admin: 07/14/19 11:43 Dose: 10 mg Aspirin (Asa -) 81 mg PO DAILY [facility] Last Admin: 07/14/19 11:43 Dose: 81 mg Atorvastatin Calcium (Lipitor -) 10 mg PO HS [facility] Last Admin: 07/14/19 21:20 Dose: 10 mg Bisacodyl (Dulcolax -) 5 mg PO DAILY [facility] Last Admin: 07/14/19 11:43 Dose: 5 mg Clopidogrel Bisulfate (Plavix -) 75 mg PO DAILY [facility] Last Admin: 07/14/19 11:43 Dose: 75 mg Famotidine (Pepcid -) 20 mg PO DAILY [facility] Last Admin: 07/14/19 11:43 Dose: 20 mg Folic Acid (Folic Acid -) 1 mg PO DAILY [facility] Last Admin: 07/14/19 11:43 Dose: 1 mg Hydralazine HCl (Apresoline -) 25 mg PO TID [facility] Last Admin: 07/15/19 06:38 Dose: 25 mg Lactated Ringer's (Lactated Ringers Solution) 1,000 ml in 1,000 mls @ 75 mls/ hr IV ASDIR [facility] Last Admin: 07/14/19 16:09 Dose: 75 mls/hr Insulin Aspart (Novolog Vial Sliding Scale -) 1 vial SQ ACHS [facility]; Protocol Last Admin: 07/15/19 06:38 Dose: Not Given Labetalol HCl (Normodyne -) 100 mg PO BID [facility] Last Admin: 07/14/19 21:20 Dose: 100 mg Losartan Potassium (Cozaar -) 25 mg PO DAILY [facility] Last Admin: 07/14/19 11:43 Dose: 25 mg Melatonin (Melatonin) 5 mg PO HS PRN PRN Reason: INSOMNIA Last Admin: 07/14/19 21:20 Dose: 5 mg Non-Formulary Medication (Vortioxetine Hydrobromide [Trintellix]) 20 mg PO DAILY [facility] Risperidone (Risperdal -) 0.25 mg PO BID [facility] Last Admin: 07/14/19 21:20 Dose: 0.25 mg Senna (Senna -) 1 tab PO DAILY PRN PRN Reason: CONSTIPATION Tamsulosin HCl (Flomax -) 0.4 mg PO DAILY@0830 [facility] Last Admin: 07/14/19 11:43 Dose: 0.4 mg - Objective Vital Signs: Vital Signs Temperature 97.8 F 07/15/19 06:00 Pulse Rate 73 07/15/19 06:00 Respiratory Rate 20 07/15/19 06:00 Blood Pressure 150/78 07/15/19 06:00 O2 Sat by Pulse Oximetry (%) 98 07/14/19 21:00 Eyes: Yes: WNL, Conjunctiva Clear, EOM Intact HENT: Yes: WNL, Atraumatic, Normocephalic Neck: Yes: WNL, Supple, Trachea Midline Cardiovascular: Yes: WNL, Regular Rate and Rhythm Respiratory: Yes: WNL, Regular, CTA Bilaterally Gastrointestinal: Yes: WNL, Normal Bowel Sounds Genitourinary: Yes: WNL Musculoskeletal: Yes: WNL Extremities: Yes: WNL Edema: No Integumentary: Yes: WNL ...Motor Strength: WNL Psychiatric: Yes: WNL Labs: CBC, BMP 07/15/19 06:10 07/15/19 06:10 INR, PTT INR 1.07 (0.83-1.09) 07/12/19 11:38 Problem List - Problems (1) Gait disturbance, post-stroke Code(s): I69.398 - OTHER SEQUELAE OF CEREBRAL INFARCTION; R26.9 - UNSPECIFIED ABNORMALITIES OF GAIT AND MOBILITY (2) Syncope Code(s): R55 - SYNCOPE AND COLLAPSE Qualifiers: Syncope type: unspecified Qualified Code(s): R55 - Syncope and collapse (3) CKD (chronic kidney disease) Code(s): N18.9 - CHRONIC KIDNEY DISEASE, UNSPECIFIED Qualifiers: Chronic kidney disease stage: stage 4 (severe) Qualified Code(s): N18.4 - Chronic kidney disease, stage 4 (severe) (4) H/O: stroke Code(s): Z86.73 - PRSNL HX OF TIA (TIA), AND CEREB INFRC W/O RESID DEFICITS (5) Hyperlipidemia Code(s): E78.5 - HYPERLIPIDEMIA, UNSPECIFIED Qualifiers: Hyperlipidemia type: pure hypercholesterolemia Qualified Code(s): E78.00 - Pure hypercholesterolemia, unspecified; E78.0 - Pure hypercholesterolemia (6) Hypertension Code(s): I10 - ESSENTIAL (PRIMARY) HYPERTENSION Qualifiers: Hypertension type: essential hypertension Qualified Code(s): I10 - Essential (primary) hypertension (7) Type 2 diabetes mellitus Code(s): E11.9 - TYPE 2 DIABETES MELLITUS WITHOUT COMPLICATIONS Qualifiers: Diabetes mellitus jail insulin use: with jail use Assessment/Plan Assessment/Plan 07/12/2019 Carotid US: No sig stenosis 1. Possible syncope vs fall and gait disturbance, seizure unlikely 2. Old Right mca storke with minimal left weakness 3. Hypertension 4. Hyperlipidemia 5. IDDM 6. CKD 7. Lymphoma of L chest, R and LUE (tx with rituxan, still on tx; oncologist [facility] Dr. Nabil Edmond) P:1. F/u echocardiogram to assess ventricular and valve fxn 2. Check orthostatic VC 3. Continue Norvasc 10 qd, ASA 81 qd, Lipitor 10 qhs, Plavix 75 qd, labetolol 100 bid, agree with losartan 25 qd once renal fxn stable 4. PT for gait training
--- NOTE | 2019-07-15 10:57 | PN ---
Progress Note (short form) - Note Progress Note: Hospitalist Medicine Resting in bed, getting ready to go to ECHO. No complaint Vitals 07/15/19 06:00 Temperature 97.8 F Pulse Rate 73 Respiratory 20 Rate Blood Pressure 150/78 General: resting comfortably, in NAD HEENT: NCAT, PERRLA neck: supple cardio: S1, S2 RRR. no r/m/g Pulm: CTA b/l. no accessory m usage abdomen: +point tenderness RLQ, RUQ. 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 CXR: (-) for acute change EKG: NSR, CO 172ms, qtc 405ms. no acute st-t wave changes Carotid duplex: partially visualized vertebral arteries appear patent. no doppler evidence of high-grade carotid a. stenosis CTAP: no definite CT findings of acute abnormality in the abdomen/pelvis. splenomegaly. several nonspecific slightly prominent bilateral inguinal LN seen. surgical anastamosis in the mid sigmoid colon. small R inguinal hernia is seen with a nondilated small bowel loop slightly bulging into the dilated internal inguinal ring. the partially imaged lower chest demonstrates a very small loculated R pleural effusion. there is also a mild R posterior basilar discoid atelectasis/ scarring. L hand XR: no acute pathology. imaging reveals loss of bone density prominent for his age. Assessment/Plan 73 y/o M with PMH IDDM, HTN, HLD, CVA ("few yrs ago"), hx CKD, lymphoma of L chest, R and LUE (tx with rituxan, still on tx; oncologist [facility] Dr. Nabil Edmond), who presents from [facility] after possible unwitnessed fall. Per pt, he found himself on the floor and next noticed that an aid was in the room. #s/p fall: mechanical vs. syncopal -unclear whether mechanical vs. syncopal, was unwitnessed -CTH (-) for bleed, however w/ postischemic encephalomalacia -f/u orthostatic VS (prior to IVF) -f/u ECHO, EEG -carotid duplex (-) -c/w IVF -fall precautions, seizure precautions -cardio consult: Dr. Sands -neuro consult: Dr. Wallace -tele monitoring #Abdominal pain, hx past perforation -CTAP w/o acute pathology; will need cont'd f/u of R inguinal hernia as outpt #hx lymphoma L chest, R and LUE -tx with Rituxan, to cont tx with onc at [facility] -follows with Dr. Nabil Edmond #CKD- at baseline -c/t monitor #HTN- uncontrolled -c/w losartan, labetalol, hydralazine #Hx CVA -c/w asa, statin -c/w plavix #HLD -c/w statin #IDDM -A1c <4% -will d/c ISS, BGM ACHS avoid hypoglycemia -will need to d/c home regimen, as low A1c #F/E/N IV LR 75 cc/hr continue to follow lytes sodium controlled/diabetic diet #PPX DVT: SCD's #Dispo tele-obs if EEG, ECHO WNL anticipate d/c to [facility] forms filled out
[2019-07-15] MEDS: LOSARTAN POTASSIUM 25 MG TABLET PO SCH (11:41)
[2019-07-15] MEDS: FAMOTIDINE 20 MG TABLET PO SCH (11:41)
[2019-07-15] MEDS: amLODIPine BESYLATE 10 MG TABLET (FP) PO SCH (11:41)
[2019-07-15] MEDS: ASPIRIN 81 MG CHEWABLE TABLETS PO SCH (11:42)
[2019-07-15] MEDS: BISACODYL 5 MG TABLET.DR (FP) PO SCH (11:42)
[2019-07-15] MEDS: TAMSULOSIN HCL 0.4 MG CAP PO SCH (11:42)
[2019-07-15] MEDS: FOLIC ACID 1 MG TABLET (FP) PO SCH (11:42)
[2019-07-15] MEDS: CLOPIDOGREL BISULFATE 75 MG TABLET (FP) PO SCH (11:42)
[2019-07-15] MEDS: LABETALOL HCL 100 MG TABLET (FP) PO SCH (11:42)
[2019-07-15] MEDS: risperiDONE 0.25 MG TABLET (FP) PO SCH (11:43)
[2019-07-15] MEDS ORDERED: PT OWN MED DRAWER 7, Y5N ONE (11:43)
--- NOTE | 2019-07-15 11:49 | EKG ---
Test Reason : Blood Pressure : / mmHG Vent. Rate : 063 BPM Atrial Rate : 063 BPM P-R Int : 172 ms QRS Dur : 102 ms QT Int : 396 ms P-R-T Axes : 053 -24 066 degrees QTc Int : 405 ms NORMAL SINUS RHYTHM NORMAL ECG NO PREVIOUS ECGS AVAILABLE Confirmed by JEAN PIERRE ORTEGA MD ([id number]) on 07/15/2019 11:49:22 AM Referred By: Confirmed By:JEAN PIERRE ORTEGA MD
--- NOTE | 2019-07-15 14:56 | ECHO ---
Name: ELIESER QUESADA Exam:Adult Echocardiogram Study Date: 07/15/2019 08:53 AM Age: 74 yrs Height: 68 in Weight: 168 lb BSA: 1.9 m2 MMode/2D Measurements & Calculations IVSd: 1.3 cm Ao root diam: 3.0 cm LVIDd: 3.9 cm LA dimension: 3.3 cm LVIDs: 2.7 cm ACS: 1.4 cm LVPWd: 1.5 cm LVPWs: 1.3 cm EDV(Teich): 66.6 ml ESV(Teich): 27.4 ml LVOT diam: 1.8 cm LAV (MOD-bp): 88.0 ml Doppler Measurements & Calculations MV E max jesus: 80.1 cm/sec MV A max jesus: 111.5 cm/sec MV dec slope: 192.1 cm/sec2 MV E/A: 0.72 MV dec time: 0.36 sec Ao V2 max: 205.1 cm/sec LV V1 max P.4 mmHg Ao max P.9 mmHg LV V1 mean P.4 mmHg Ao V2 mean: 138.0 cm/sec LV V1 max: 115.5 cm/sec Ao mean P.3 mmHg LV V1 mean: 81.6 cm/sec Ao V2 VTI: 35.0 cm LV V1 VTI: 20.7 cm JOSEPHINE(I,D): 1.6 cm2 JOSEPHINE(V,D): 1.5 cm2 SV(LVOT): 54.6 ml TR max jesus: 156.1 cm/sec TR max P.8 mmHg PA V2 max: 91.6 cm/sec Med Peak E' Jesus: 6.1 cm/sec PA max P.4 mmHg Med E/e': 13.1 Lat Peak E' Jesus: 9.4 cm/sec Lat E/e': 8.5 Procedure A complete two-dimensional transthoracic echocardiogram was performed (2D, M-mode, Doppler and color flow Doppler). Left Ventricle The left ventricle is normal in size. Left ventricular systolic function is normal. Ejection Fraction = 65- 70%. LV diastology reveals elevated filling pressure with impaired relaxation (E/E' 16). No regional wall motion abnormalities noted. Right Ventricle The right ventricle is normal size. The right ventricular systolic function is normal. RV systolic TD I is 16 cm/s. Atria The left atrial size is normal. Right atrial size is normal. Mitral Valve There is moderate mitral annular calcification. There is mild mitral valve thickening. There is mild to moderate mitral regurgitation. Tricuspid Valve The tricuspid valve is normal in structure and function. There is mild tricuspid regurgitation. Right ventricular systolic pressure is normal. Aortic Valve There is mild aortic sclerosis.;. No aortic regurgitation is present. Pulmonic Valve The pulmonic valve is not well visualized. Great Vessels The aortic root is normal size. Pericardium/Pleura There is no pericardial effusion. Interpretation Summary The left ventricle is normal in size. Left ventricular systolic function is normal. No regional wall motion abnormalities noted. Ejection Fraction = 65-70%. LV diastology reveals elevated filling pressure with impaired relaxation (E/E' 16) The right ventricular systolic function is normal. The left atrial size is normal. Right atrial size is normal. There is moderate mitral annular calcification. There is mild mitral valve thickening. There is mild to moderate mitral regurgitation. There is mild tricuspid regurgitation. Right ventricular systolic pressure is normal. There is mild aortic sclerosis. There is no pericardial effusion. Weston Claudio MD 07/15/2019 02:56 PM
[2019-07-15 16:05] VITALS: BP 153/76; PULSE 69; TEMP 98.4
--- NOTE | 2019-07-15 17:05 | DS ---
Physical Exam: SUBJECTIVE: Patient seen and examined at bedside. Resting in bed, getting ready to go to ECHO. No complaint OBJECTIVE: Vital Signs Period Temp Pulse Resp BP Sys/Alfaro Pulse Ox Last 24 Hr 97.8 F-98.4 F 61-73 20-20 143-156/61-89 98-98 07/15/19 07/15/19 07/15/19 02:00 06:00 10:00 Blood Pressure 143/68 150/78 152/89 07/15/19 14:00 Blood Pressure 153/76 PHYSICAL EXAM General: resting comfortably, in NAD HEENT: NCAT, PERRLA neck: supple cardio: S1, S2 RRR. no r/m/g Pulm: CTA b/l. no accessory m usage abdomen: +point tenderness RLQ, RUQ. TTP, however no guarding or rigidity UE: +R: mass felt under axilla, non-ttp LE: 2+ pulses, no edema neuro: school resource officer 2-12 grossly intact msk: +TTP over L thumb, dorsal aspect affect: appropriate LABS Laboratory Results - last 24 hr 07/14/19 07/14/19 07/15/19 18:01 21:19 05:35 WBC RBC Hgb Hct MCV MCH MCHC RDW Plt Count MPV Absolute Neuts (auto) Neutrophils % Lymphocytes % Monocytes % Eosinophils % Basophils % Nucleated RBC % Sodium Potassium Chloride Carbon Dioxide Anion Gap BUN Creatinine Est GFR (CKD-EPI)AfAm Est GFR (CKD-EPI)NonAf POC Glucometer 128 110 104 Random Glucose Calcium 07/15/19 07/15/19 06:10 06:10 WBC 4.4 RBC 2.38 L Hgb 7.8 L Hct 21.8 L MCV 91.6 MCH 32.7 MCHC 35.7 RDW 15.0 Plt Count 97 L MPV 8.8 Absolute Neuts (auto) 2.8 Neutrophils % 63.6 Lymphocytes % 18.8 Monocytes % 8.0 Eosinophils % 9.0 H Basophils % 0.6 Nucleated RBC % 0 Sodium 142 Potassium 4.2 Chloride 113 H Carbon Dioxide 22 Anion Gap 7 L BUN 46.6 H Creatinine 2.8 H Est GFR (CKD-EPI)AfAm 24.29 Est GFR (CKD-EPI)NonAf 20.96 POC Glucometer Random Glucose 100 Calcium [address]: no evidence of hemorrhage, edema, midline shift or mass effect. 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 CXR: (-) for acute change EKG: NSR, NJ 172ms, qtc 405ms. no acute st-t wave changes Carotid duplex: partially visualized vertebral arteries appear patent. no doppler evidence of high-grade carotid a. stenosis CTAP: no definite CT findings of acute abnormality in the abdomen/pelvis. splenomegaly. several nonspecific slightly prominent bilateral inguinal LN seen. surgical anastamosis in the mid sigmoid colon. small R inguinal hernia is seen with a nondilated small bowel loop slightly bulging into the dilated internal inguinal ring. the partially imaged lower chest demonstrates a very small loculated R pleural effusion. there is also a mild R posterior basilar discoid atelectasis/ scarring. L hand XR: no acute pathology. imaging reveals loss of bone density prominent for his age. ECHO: LV systolic function is normal, no regional wall motion abnormalities, EF 65-70%, LV diastolic testing reveals elevated filling pressure with impaired relaxation. RVSF normal. LA size normal, RA size normal. moderate mitral annular calcification. mild MV thickening, mild to moderate mtral regurgitation. mild tricuspid regurg. RVSP normal. HOSPITAL COURSE: Date of Admission:07/12/19 Date of Discharge: 07/15/19 Admission diagnosis: syncope 73 y/o M with PMH IDDM, HTN, HLD, CVA ("few yrs ago"), hx CKD, lymphoma of L chest, R and LUE (tx with rituxan, still on tx; oncologist [facility] Dr. Nabil Edmond), who presents from [facility] after possible unwitnessed fall. Per pt, he found himself on the floor and next noticed that an aid was in the room. Pt admitted for syncope and was managed accordingly, on tele: #s/p fall: mechanical vs. syncopal -unclear whether mechanical vs. syncopal, was unwitnessed -CTH (-) for bleed, however w/ postischemic encephalomalacia -ECHO result above: without acute abnormality , w/ diastolic dysfunction -EEG completed as in patient. report will be reviewed w/ pt outpt w/ neuro -carotid duplex (-) -c/w IVF -fall precautions, seizure precautions -cardio consult: Dr. Sands -neuro consult: Dr. Wallace -tele monitoring #Abdominal pain, hx past perforation -CTAP w/o acute pathology; will need cont'd f/u of R inguinal hernia as outpt #hx lymphoma L chest, R and LUE -tx with Rituxan, to cont tx with onc at [facility] -follows with Dr. Nabil Moody -call placed to Dr. Moody for call back to update on pt condition. awaiting call back. #CKD- at baseline -c/t monitor -outpt f/u recommended with Dr. Elizabeth- 1 week #HTN- uncontrolled -c/w losartan, labetalol, hydralazine #Hx CVA -c/w asa, statin -c/w plavix #HLD -c/w statin #IDDM -A1c <4% -will d/c ISS, BGM ACHS avoid hypoglycemia -will need to d/c home regimen, as low A1c Minutes to complete discharge: 45 Discharge Summary Problems reviewed: Yes Reason For Visit: SYNCOPE Condition: Stable - Instructions Diet, Activity, Other Instructions: You were in the hospital because you passed out. While you were here, you were monitored on telemetry/ cardiac monitoring. You had an ECHO (picture) taken of your heart which was normal however showed that you have "elevated filling pressure with impaired relaxation in your left ventricle." You also had a carotid ultrasound done (picture taken of your neck vessels) which was normal. Your x-ray of your Left hand was also normal, without evidence of fracture. You improved and are being sent back to your facility. Medications You are not being discharged on any new medications. NOTE: while you were in the hospital, you were found to have an A1c <4. Your primary care provider should discuss discontinuing your insulin sliding scale and levemir with you. We are discontinuing these medications upon your return to the facility. Care/Testing Please use care when ambulating to avoid falls. 1. You will need to have repeat kidney testing (renal function testing) done upon your discharge. 2. You will also need your volume status checked and you may need to be started on a diuretic based on your ECHO results. You will discuss this with a dope sprayer this week. Follow up Please follow up with the following physicians upon your discharge: -Dr. Nabil Edmond, your oncologist at [facility] - 1 week -your primary care provider, Dr. Mcclendon- this week at the facility in 3-5 days -a kidney doctor, Dr. Elizabeth - 1 week -a neurologist, Dr. Wallace - 1 week to discuss your EEG results. -the dope sprayer, Dr. Sands who saw you in the hospital - in the next 3-5 days to discuss your visit and you may need to start on a diuretic with your ECHO result. You will discuss this with him. Referrals: Dr. Nabil Moody [Other] - 1 Week Bret Wallace MD [Staff Physician] - 1 Week Darrell Sands MD [Staff Physician] - 1 Week Vinayak Mcclendon MD [Primary Care Provider] - 07/17/19 Almas Elizabeth MD [Staff Physician] - 1 Week Disposition: HOME - Home Medications Comprehensive Discharge Medication List: Ambulatory Orders Acetaminophen 325 mg PO QID PRN 08/15/18 Amlodipine Besylate 10 mg PO DAILY 08/15/18 Aspirin [ASA -] 81 mg PO DAILY 08/15/18 Atorvastatin Ca [Lipitor] 10 mg PO HS 08/15/18 Clopidogrel Bisulfate [Plavix] 75 mg PO DAILY 08/15/18 Clotrimazole [Lotrimin -] 1 applic TP DAILY 08/15/18 Folic Acid 1 mg PO DAILY 08/15/18 Hydralazine HCl 25 mg PO TID 08/15/18 Labetalol HCl 100 mg PO BID 08/15/18 Silodosin [Rapaflo] 8 mg PO DAILY 08/15/18 Triamcinolone Acetonide [Kenalog] 63 gm TP BID 08/15/18 Vortioxetine Hydrobromide [Trintellix] 20 mg PO DAILY 08/15/18 Albuterol Sulfate 0.042% [Ventolin 0.042% (Half-Strength) -] 1 inh IH Q4H PRN Bisacodyl [Gentle Laxative] 5 mg PO DAILY 07/12/19 Darbepoetin Eulalio in Polysorbat [Aranesp] 40 mg WEEKLY 07/12/19 Famotidine 20 mg PO DAILY 07/12/19 Ipratropium/Albuterol Sulfate [Combivent Respimat 20-100 Mcg] 4 gm IH QID Melatonin/Pyridoxine HCl (B6) [Melatonin 5 mg Tablet] 5 mg PO HS 07/12/19 Risperidone 0.25 mg PO BID 07/12/19 Sennosides [Senna] 8.6 mg PO DAILY PRN 07/12/19 Albuterol Sulfate 0.042% [Ventolin 0.042% (Half-Strength) -] 1 amp NEB Q4H PRN amp 07/15/19 Insulin Sliding Scale [Novolog Vial Sliding Scale -] 1 vial SQ ACHS units 07/15 Losartan Potassium [Cozaar -] 25 mg PO DAILY tablet 07/15/19 Melatonin 5 mg PO HS PRN tab 07/15/19 This patient is new to me today: No Emergency Visit: No Critical Care patient: No - Discharge Referral Referred to [facility] No
--- NOTE | 2019-07-16 12:52 | EKG ---
Test Reason : Blood Pressure : / mmHG Vent. Rate : 060 BPM Atrial Rate : 060 BPM P-R Int : 176 ms QRS Dur : 102 ms QT Int : 402 ms P-R-T Axes : 059 -28 070 degrees QTc Int : 402 ms NORMAL SINUS RHYTHM NORMAL ECG WHEN COMPARED WITH ECG OF 12-JUL-2019 10:45, NO SIGNIFICANT CHANGE WAS FOUND Confirmed by MD LESVIA, YUKO ([id number]) on 07/16/2019 12:51:54 PM Referred By: Confirmed By:YUKO LAKHANI MD
== END 2019-07-15 16:41 | disposition home or self-care (01) ==
LOC: JER 10:19 → JERBED 13:35 → J4W 18:55
PROVIDERS: ADMIT Internal Medicine; ATTEND Internal Medicine
DX: R55 Syncope and collapse (principal); R01.1 Cardiac murmur, unspecified; I12.9 Hypertensive chronic kidney disease with stage 1 through stage 4 chronic kidney disease, or unspecified chronic kidney disease; N18.4 Chronic kidney disease, stage 4 (severe); Z87.891 Personal history of nicotine dependence; E10.22 Type 1 diabetes mellitus with diabetic chronic kidney disease; Z79.4 Long term (current) use of insulin; I69.398 Other sequelae of cerebral infarction; R26.89 Other abnormalities of gait and mobility; I69.354 Hemiplegia and hemiparesis following cerebral infarction affecting left non-dominant side; J44.9 Chronic obstructive pulmonary disease, unspecified; F03.90 Unspecified dementia, unspecified severity, without behavioral disturbance, psychotic disturbance, mood disturbance, and anxiety; E78.5 Hyperlipidemia, unspecified; D50.9 Iron deficiency anemia, unspecified; N40.0 Benign prostatic hyperplasia without lower urinary tract symptoms; Z79.02 Long term (current) use of antithrombotics/antiplatelets; K40.90 Unilateral inguinal hernia, without obstruction or gangrene, not specified as recurrent; R10.11 Right upper quadrant pain; R10.31 Right lower quadrant pain; Z88.1 Allergy status to other antibiotic agents; Z88.2 Allergy status to sulfonamides; W18.39XA Other fall on same level, initial encounter; Y93.89 Activity, other specified; Y92.092 Bedroom in other non-institutional residence as the place of occurrence of the external cause; Y99.8 Other external cause status
CPT/HCPCS: 36415; 70450-TC; 71045-TC-FY; 73110-TC-LT-FY; 73130-TC-LT-FY; 74176-TC; 80048; 80053; 81003; 82550; 82962; 83036; 83735; 84100; 84436; 84443; 84479; 84484; 85025; 85610; 85730; 93005; 93010; 93306-TC; 93880-TC; 94640; 95816; 97116-GP; 97161-GP; 99283-25; G0378

== ENCOUNTER 2019-08-03 14:33 | Emergency (ER) | payer OTHER ==
[2019-08-03 14:51] VITALS: TEMP 97.6; BMI 24.3
--- NOTE | 2019-08-03 15:16 | PDOC ---
Documentation entered by Marion Wheeler SCRIBE, acting as scribe for Abeba Smart DO. Abeba Smart, : This documentation has been prepared by the Summer soriano Mackenzie, SCRIBE, under my direction and personally reviewed by me in its entirety. I confirm that the documentation accurately reflects all work , treatment, procedures, and medical decision making performed by me. History of Present Illness - General Chief Complaint: Wound Stated Complaint: RIGHT GREAT TOE WOUND Time Seen by Provider: 08/03/19 14:45 History Source: Patient Exam Limitations: Dementia - History of Present Illness Initial Comments: The patient is a 73 year old male, with a significant PMH of HTN, HLD, CVA (a few years ago), IDDM, hx CKD, lymphoma L chest, R and LUE, who presents to the emergency department [facility] from [facility] after waking up with an injury to his R big toe yesterday morning. Patient states when he woke up yesterday his right toe was bent up at him and he was in pain. He was treated at his facility by a loan servicing officer who bandaged the foot and diagnosed a fracture. Patient states he came in today because he felt he was in more pain than yesterday despite administering tylenol earlier today. The patient denies chest pain, shortness of breath, headache and dizziness. Denies fever, chills, nausea, vomiting, diarrhea and constipation. Denies dysuria, frequency, urgency and hematuria. Allergies: sulfa History is limited secondary to patient being a poor historian. 08/03/19 15:57 Past History - Past Medical History Allergies/Adverse Reactions: Allergies Allergy/AdvReac Type Severity Reaction Status Date / Time Sulfa (Sulfonamide Allergy Verified 08/03/19 14:47 Antibiotics) Home Medications: Ambulatory Orders Acetaminophen 325 mg PO QID PRN 08/15/18 Amlodipine Besylate 10 mg PO DAILY 08/15/18 Aspirin [ASA -] 81 mg PO DAILY 08/15/18 Atorvastatin Ca [Lipitor] 10 mg PO HS 08/15/18 Clopidogrel Bisulfate [Plavix] 75 mg PO DAILY 08/15/18 Clotrimazole [Lotrimin -] 1 applic TP DAILY 08/15/18 Folic Acid 1 mg PO DAILY 08/15/18 Hydralazine HCl 25 mg PO TID 08/15/18 Labetalol HCl 100 mg PO BID 08/15/18 Silodosin [Rapaflo] 8 mg PO DAILY 08/15/18 Triamcinolone Acetonide [Kenalog] 63 gm TP BID 08/15/18 Vortioxetine Hydrobromide [Trintellix] 20 mg PO DAILY 08/15/18 Albuterol Sulfate 0.042% [Ventolin 0.042% (Half-Strength) -] 1 inh IH Q4H PRN Bisacodyl [Gentle Laxative] 5 mg PO DAILY 07/12/19 Darbepoetin Eulalio in Polysorbat [Aranesp] 40 mg WEEKLY 07/12/19 Famotidine 20 mg PO DAILY 07/12/19 Ipratropium/Albuterol Sulfate [Combivent Respimat 20-100 Mcg] 4 gm IH QID Melatonin/Pyridoxine HCl (B6) [Melatonin 5 mg Tablet] 5 mg PO HS 07/12/19 Risperidone 0.25 mg PO BID 07/12/19 Sennosides [Senna] 8.6 mg PO DAILY PRN 07/12/19 Albuterol Sulfate 0.042% [Ventolin 0.042% (Half-Strength) -] 1 amp NEB Q4H PRN amp 07/15/19 Insulin Sliding Scale [Novolog Vial Sliding Scale -] 1 vial SQ ACHS units 07/15 Losartan Potassium [Cozaar -] 25 mg PO DAILY tablet 07/15/19 Melatonin 5 mg PO HS PRN tab 07/15/19 Insulin Detemir [Levemir Flextouch] 0 unit SQ DAILY 08/03/19 COPD: No Dementia: Yes Diabetes: Yes HTN: Yes Hypercholesterolemia: Yes - Surgical History Abdominal Surgery: Yes (perforated colon/ colostomy reversal) GI Surgery: Yes (perforated colon) Neurologic Surgery: No Orthopedic Surgery: No - Immunization History Immunization Up to Date: No - Psycho Social/Smoking Cessation Hx Smoking History: Former smoker Have you smoked in the past 12 months: No If you are a former smoker, when did you quit?: 1989 Hx Alcohol Use: No Drug/Substance Use Hx: No Review of Systems - Review of Systems Able to Perform ROS?: Yes Comments:: GENERAL/CONSTITUTIONAL: No fever or chills. No weakness. HEAD, EYES, EARS, NOSE AND THROAT: No change in vision. No ear pain or discharge. No sore throat. GASTROINTESTINAL: No nausea, vomiting, diarrhea or constipation. GENITOURINARY: No dysuria, frequency, or change in urination. CARDIOVASCULAR: No chest pain or shortness of breath. RESPIRATORY: No cough, wheezing, or hemoptysis. MUSCULOSKELETAL: (+) Pain in right toe. No neck or back pain. SKIN: No rash NEUROLOGIC: No headache, vertigo, loss of consciousness, or change in strength/ sensation. ENDOCRINE: No increased thirst. No abnormal weight change. HEMATOLOGIC/LYMPHATIC: No anemia, easy bleeding, or history of blood clots. ALLERGIC/IMMUNOLOGIC: No hives or skin allergy. 08/03/19 15:58 *Physical Exam - Vital Signs Last Vital Signs Temp Pulse Resp BP Pulse Ox 97.6 F 61 19 159/65 100 08/03/19 14:43 08/03/19 14:43 08/03/19 14:43 08/03/19 14:43 08/03/19 14:43 - Physical Exam Constitutional: (+)Dimented. Awake and alert. No acute distress. Head: Normocephalic. Atraumatic Eyes: PERRL. EOMI. Conjunctivae are not pale. ENT: Mucous membranes are moist and intact. Posterior pharynx without exudates or erythema. Uvula midline. Neck: Supple. Full ROM. No lymphadenopathy. Cardiovascular: Regular rate. Regular rhythm. S1, S2 regular. Distal pulses are 2+ and symmetric. Pulmonary/Chest: No evidence of respiratory distress. Clear to auscultation bilaterally No wheezing, rales or rhonchi. Abdominal: Soft and non-distended. There is no tenderness. No rebound, guarding or rigidity. No organomegaly. No palpable masses. Good bowel sounds. Back: No CVA tenderness. Musculoskeletal: (+) Ecchymosis over right toes 1, 2, and 3, on dorsal side of foot with tenderness over first second and third metatarsals. (+)No diabetic wounds, ulcerations, or breaks in skin. (+) Neurovascularly intact. No edema. No cyanosis. No clubbing. Nocalf tenderness. Radial/pedal pulses are intact and 2+ bilaterally Skin: Skin is warm and dry. No petechiae. No purpura. Neurological: (+)Alert and oriented to person, and place only. Cranial nerves II-XII are grossly intact. Normal speech. Strength is grossly symmetric. No sensory deficits. Psychiatric: Good eye contact. Normal interaction, affect and behavior. 08/03/19 15:58 Procedures - Splinting Splint Location: Right: Foot Pre-Proc Neuro Vasc Exam: normal Hand-Made Type: orthoglass Splint Type: Yes: Posterior, Short Leg Post-Proc Neuro Vasc Exam: normal Angel Bandage: yes, 3" Progress: 08/03/19 17:09 pt tolerated the procedure well ED Treatment Course - RADIOLOGY Radiology Studies Ordered: Category Date Time Status ANKLE & FOOT-RIGHT* [RAD] Stat Radiology 08/03/19 14:57 Ordered Medical Decision Making - Medical Decision Making 08/03/19 15:14 a/p: 74yo male with R foot pain -states toe was bent back yesterday morning when he woke up and had pain in the foot since -seen by podiatry yesterday and foot was wrapped in a betadine wrap and saul taped together -pt states foot was broken -pt is a poor historian, hx of dm, dementia, htn, hld -pt denies all other somatic complaints other than foot pain -will send for xray -finger stick -will monitor and reassess 08/03/19 16:00 xray reviewed - poss sesmoid fx images sent to [facility] for official read 08/03/19 17:02 pt splinted for comfort pending official read 08/03/19 17:26 blood sugar 96 no acute fx on xray splinted for comfort will give ortho follow up stable for dc back to assisted living Discharge - Discharge Information Problems reviewed: Yes Clinical Impression/Diagnosis: Foot pain, right Condition: Stable Disposition: HOME - Admission No - Follow up/Referral Referrals: Malcolm Mancuso MD [Staff Physician] - Colton Fowler MD [Staff Physician] - - Patient Discharge Instructions Patient Printed Discharge Instructions: DI for Foot Pain Additional Instructions: Please call the orthopedist and arrange for follow up. Please return to the ED with any further concerns or complaints. Please avoid any further trauma to the foot. A fracture was not seen on todays xray- but an occult fracture may need further imaging. Please keep the splint dry. Please return to the ED with any further concerns or complaints. - Post Discharge Activity
[2019-08-03 18:54] VITALS: PULSE 64
[2019-08-03 19:19] VITALS: BP 168/69
== END 2019-08-03 19:25 | disposition home or self-care (01) ==
LOC: FER 14:33
DX: M79.671 Pain in right foot (principal); E78.5 Hyperlipidemia, unspecified; Z86.73 Personal history of transient ischemic attack (TIA), and cerebral infarction without residual deficits; E11.22 Type 2 diabetes mellitus with diabetic chronic kidney disease; I12.9 Hypertensive chronic kidney disease with stage 1 through stage 4 chronic kidney disease, or unspecified chronic kidney disease; N18.9 Chronic kidney disease, unspecified; Z79.4 Long term (current) use of insulin; Z88.2 Allergy status to sulfonamides; Z79.82 Long term (current) use of aspirin; F03.90 Unspecified dementia, unspecified severity, without behavioral disturbance, psychotic disturbance, mood disturbance, and anxiety; Z87.891 Personal history of nicotine dependence
CPT/HCPCS: 73610-TC-RT-FY; 73630-TC-RT-FY; 82962; 99282-25

== ENCOUNTER 2019-08-28 17:20 | Emergency (ER) | payer OTHER ==
[2019-08-28 17:45] VITALS: BMI 24.3
[2019-08-28] MEDS ORDERED: SODIUM CHLORIDE 1,000 ML IV STA (18:01)
[2019-08-28] MEDS ORDERED: ACETAMINOPHEN 1000 MG/100 ML VIAL (NON FORMULARY) IVPB ONE (18:01)
[2019-08-28] MEDS ORDERED: FAMOTIDINE 20 MG/50 ML IVPB 20 MG/50 ML MG IVPB ONE ×2 (18:01→18:35)
--- NOTE | 2019-08-28 18:34 | PDOC ---
History of Present Illness - General Chief Complaint: Pain Stated Complaint: ABD PAIN Time Seen by Provider: 08/28/19 17:47 History Source: Patient Exam Limitations: No Limitations - History of Present Illness Initial Comments: Anurag Devi is a 74 yo M w a hx of HTN, HCL, CVA (a few years ago), IDDM, hx CKD, lymphoma L chest, R and LUE, and dementia who presents to the emergency department BIB [facility] with one day of acute right sided abdominal pain. The patient says the pain is right under the ribs and was associated with 2 episodes of watery diarrhea without blood. The pain feels like a burning sensation, is rated 7/10, does not radiate to the back or groin, and is not associated with nausea, vomiting or fevers. The patient ate a chicken sandwich today and believes the pain was not worsened after he ate food. Patient states his colon perforated in the past and he required surgery to remove part of his colon. Denies nausea, vomiting, fevers, chills, chest pain, SOB, difficulty breathing PCP: Dr Vinayak Mcclendon PSH: partial colectomy Social Hx: Denies current smoking, drinking, or other substance usage Allergies: Sulfa Past History - Past Medical History Allergies/Adverse Reactions: Allergies Allergy/AdvReac Type Severity Reaction Status Date / Time Sulfa (Sulfonamide Allergy Verified 08/03/19 14:47 Antibiotics) Home Medications: Ambulatory Orders Acetaminophen 325 mg PO QID PRN 08/15/18 Amlodipine Besylate 10 mg PO DAILY 08/15/18 Aspirin [ASA -] 81 mg PO DAILY 08/15/18 Atorvastatin Ca [Lipitor] 10 mg PO HS 08/15/18 Clopidogrel Bisulfate [Plavix] 75 mg PO DAILY 08/15/18 Clotrimazole [Lotrimin -] 1 applic TP DAILY 08/15/18 Folic Acid 1 mg PO DAILY 08/15/18 Hydralazine HCl 25 mg PO TID 08/15/18 Labetalol HCl 100 mg PO BID 08/15/18 Silodosin [Rapaflo] 8 mg PO DAILY 08/15/18 Triamcinolone Acetonide [Kenalog] 63 gm TP BID 08/15/18 Vortioxetine Hydrobromide [Trintellix] 20 mg PO DAILY 08/15/18 Albuterol Sulfate 0.042% [Ventolin 0.042% (Half-Strength) -] 1 inh IH Q4H PRN Bisacodyl [Gentle Laxative] 5 mg PO DAILY 07/12/19 Darbepoetin Eulalio in Polysorbat [Aranesp] 40 mg WEEKLY 07/12/19 Famotidine 20 mg PO DAILY 07/12/19 Ipratropium/Albuterol Sulfate [Combivent Respimat 20-100 Mcg] 4 gm IH QID Melatonin/Pyridoxine HCl (B6) [Melatonin 5 mg Tablet] 5 mg PO HS 07/12/19 Risperidone 0.25 mg PO BID 07/12/19 Sennosides [Senna] 8.6 mg PO DAILY PRN 07/12/19 Albuterol Sulfate 0.042% [Ventolin 0.042% (Half-Strength) -] 1 amp NEB Q4H PRN amp 07/15/19 Insulin Sliding Scale [Novolog Vial Sliding Scale -] 1 vial SQ ACHS units 07/15 Losartan Potassium [Cozaar -] 25 mg PO DAILY tablet 07/15/19 Melatonin 5 mg PO HS PRN tab 07/15/19 Insulin Detemir [Levemir Flextouch] 0 unit SQ DAILY 08/03/19 COPD: No Dementia: Yes Diabetes: Yes HTN: Yes Hypercholesterolemia: Yes - Surgical History Abdominal Surgery: Yes (perforated colon/ colostomy reversal) Appendectomy: Yes GI Surgery: Yes (perforated colon) Neurologic Surgery: No Orthopedic Surgery: No - Immunization History Immunization Up to Date: No - Psycho Social/Smoking Cessation Hx Smoking History: Smoker current status UNK Have you smoked in the past 12 months: No If you are a former smoker, when did you quit?: 1989 Information on smoking cessation initiated: No Hx Alcohol Use: No Drug/Substance Use Hx: No Review of Systems - Review of Systems Able to Perform ROS?: Yes Comments:: CONSTITUTIONAL: Absent: fever, no chills, no fatigue EYES: Absent: visual changes ENT: Absent: ear pain, no sore throat CARDIOVASCULAR: Absent: chest pain, no palpitations RESPIRATORY: Absent: cough, no SOB GI: Present: Abdominal pain, diarrhea Absent: no nausea, no vomiting, no constipation GENITOURINARY: Absent: dysuria, no frequency, no hematuria MUSKULOSKELETAL: Absent: back pain, no arthralgia, no myalgia SKIN: Absent: rash NEURO: Absent: headache *Physical Exam - Vital Signs Last Vital Signs Temp Pulse Resp BP Pulse Ox 96.4 F L 64 18 153/63 99 08/28/19 17:36 08/28/19 17:36 08/28/19 17:36 08/28/19 17:36 08/28/19 17:36 - Physical Exam GENERAL: Well-appearing, well-nourished. Mild distress. HEENT: Normocephalic, atraumatic. PERRL, EOM intact. CARDIOVASCULAR: Normal S1, S2. Regular rate and rhythm. PULMONARY: No evidence of respiratory distress. Lungs clear to auscultation bilaterally. No wheezing, rales or rhonchi. ABDOMEN: There is mild right sided abdominal TTP. Soft, non-distended. Normal bowel sounds, no guarding or rebound. EXTREMITIES: Normal ROM in all four extremities. No gross deformities. SKIN: Warm, dry. No rash NEUROLOGICAL: No focal neurological deficits. ED Treatment Course - LABORATORY CBC & Chemistry Diagram: 08/28/19 18:21 08/28/19 18:21 - RADIOLOGY Radiology Studies Ordered: Category Date Time Status ABDOMEN & PELVIS CT WITH CONTR [CT] Stat CT Scan 08/28/19 18:02 Ordered Radiograph Interpretation: CTAP: EXAM#: TYPE/EXAM: RESULT: [id number] CT/ABDOMEN PELVIS CT W/O CONTR HISTORY PROVIDED: Right sided abdominal pain TECHNIQUE: Sequential axial images were obtained from the domes of the diaphragm through the symphysis pubis. The study is limited without the use of any contrast material. A small area of consolidation/atelectasis is seen at the right lung base. The heart is not enlarged. There is a trace amount of pericardial fluid. The liver is enlarged measuring 21.5 cm in craniocaudad dimension. No intrahepatic masses are identified. The spleen is also enlarged measuring 13.5 cm. The pancreas, adrenal glands and kidneys demonstrate no significant abnormalities. There is a 2.8 cm left renal cyst. The gallbladder is clear. There is no evidence of intra- abdominal or retroperitoneal lymphadenopathy or fluid collections. There is no evidence of pneumoperitoneum, bowel obstruction or intra-abdominal abscess. There is no CT evidence of acute appendicitis or diverticulitis. Examination of the pelvis demonstrates no evidence of pelvic masses, fluid collections or lymphadenopathy. There is a moderate amount of retained fecal material throughout the colon and rectum. The urinary bladder is slightly thickened. The possibility of cystitis cannot be excluded. The prostate gland is mildly enlarged. There is no evidence of acute bony pathology. IMPRESSION: 1. Right basilar consolidation/atelectasis. 2. Hepatosplenomegaly. 3. Fecal retention, no acute pathology within the abdomen or pelvis. Limited study as described above. Medical Decision Making - Medical Decision Making Anurag Devi is a 74 yo M w a hx of HTN, HCL, CVA (a few years ago), IDDM, hx CKD, lymphoma L chest, R and LUE, and dementia who presents to the emergency department BIB [facility] with one day of acute right sided abdominal pain. The patient says the pain is right under the ribs and was associated with 2 episodes of watery diarrhea without blood. The pain feels like a burning sensation, is rated 7/10, does not radiate to the back or groin, and is not associated with nausea, vomiting or fevers. The patient ate a chicken sandwich today and believes the pain was not worsened after he ate food. Patient states his colon perforated in the past and he required surgery to remove part of his colon. Vital Signs Temp Pulse Resp BP Pulse Ox 96.4 F L 64 18 153/63 99 08/28/19 17:36 08/28/19 17:36 08/28/19 17:36 08/28/19 17:36 08/28/19 17:36 DDx IBNLT: gallstones vs cholecystitis, pancreatitis, colitis, appendicitis, peritonitis, diverticulitis, electrolyte/metabolic disturbance, anemia, dehydration Plan: Labs, urine, EKG, IV hydration, CTAP, analgesia, re-assess EKG: NS rate of 66, narrow complexes, normal axis, no hypertrophy, no ST elevations or depressions, TWI in aVL which was present in 07/12/19, possible anterior infarct age undetermined. Labs: CBC,CMP WBC 5.6 K/mm3 (4.0-10.0) 08/28/19 18:21 RBC 2.40 M/mm3 (4.00-5.60) L 08/28/19 18:21 Hgb 8.3 GM/dL (11.7-16.9) L 08/28/19 18:21 Hct 23.2 % (35.4-49) L 08/28/19 18:21 MCV 96.8 fl (80-96) H 08/28/19 18:21 MCH 34.7 pg (25.7-33.7) H 08/28/19 18:21 MCHC 35.9 g/dl (32.0-35.9) 08/28/19 18:21 RDW 15.2 % (11.9-15.9) 08/28/19 18:21 Plt Count 90 K/MM3 (134-434) L 08/28/19 18:21 MPV 9.0 fl (7.5-11.1) 08/28/19 18:21 Absolute Neuts (auto) 4.0 K/mm3 (1.5-8.0) 08/28/19 18:21 Neutrophils % 71.6 % (42.8-82.8) 08/28/19 18:21 Lymphocytes % 15.8 % (8-40) 08/28/19 18: Monocytes % 7.1 % (3.8-10.2) 08/28/19 18:21 Eosinophils % 5.0 % (0-4.5) H 08/28/19 18:21 Basophils % 0.5 % (0-2.0) 08/28/19 18: Nucleated RBC % 0 % (0-0) 08/28/19 18:21 Sodium 140 mmol/L (136-145) 08/28/19 18:21 Potassium 5.3 mmol/L (3.5-5.1) H 08/28/19 18:21 Chloride 115 mmol/L (98-107) H 08/28/19 18:21 Carbon Dioxide 20 mmol/L (21-32) L 08/28/19 18:21 Anion Gap 5 MMOL/L (8-16) L 08/28/19 18:21 BUN 58.6 mg/dL (7-18) H 08/28/19 18:21 Creatinine 3.1 mg/dL (0.55-1.3) H 08/28/19 18:21 Est GFR (CKD-EPI)AfAm 21.48 08/28/19 18:21 Est GFR (CKD-EPI)NonAf 18.53 08/28/19 18:21 Random Glucose 114 mg/dL (74-106) H 08/28/19 18:21 Lactic Acid 0.7 mmol/L (0.4-2.0) 08/28/19 18: Calcium 8.2 mg/dL (8.5-10.1) L 08/28/19 18:21 Phosphorus 4.2 mg/dL (2.5-4.9) 08/28/19 18: Magnesium 2.0 mg/dL (1.8-2.4) 08/28/19 18: Total Bilirubin 0.3 mg/dL (0.2-1) 08/28/19 18:21 AST 13 U/L (15-37) L 08/28/19 18:21 ALT 31 U/L (13-61) 08/28/19 18:21 Alkaline Phosphatase 60 U/L (45-117) 08/28/19 18: Creatine Kinase 79 U/L (26-308) 08/28/19 18: Troponin I < 0.02 ng/ml (0.00-0.05) 08/28/19 18: Total Protein 5.8 g/dl (6.4-8.2) L 08/28/19 18:21 Albumin 3.2 g/dl (3.4-5.0) L 08/28/19 18: Lipase 355 U/L (73-393) 08/28/19 18:21 - These lab abnormalities appear to mainly be chronic in nature with minimal acute changes. - Trop x2 negative Urine: Unremarkable Bedside POCUS: GB: There are no stones, no wall thickening, no summer-chol fluid, neg sono cooper , normal CBD FAST: Negative for intraperitoneal free fluid Renal: no stones Bladder: Possibly mild wall thickening, bladder is not distended CTAP: The urinary bladder is slightly thickened. The possibility of cystitis cannot be excluded. The prostate gland is mildly enlarged. - There is no evidence of acute bony pathology. IMPRESSION: 1. Right basilar consolidation/atelectasis. 2. Hepatosplenomegaly. 3. Fecal retention, no acute pathology within the abdomen or pelvis. Limited study as described above. Re-assessment: Patient endorses significant relief after analgesia and suppotive care. The patient is eating and drinking here in the ER. He has no active complaints and requests to be discharged back to [facility]. He is no longer exhibiting abdominal pain. Disposition: Back to [facility]. Discharge - Discharge Information Problems reviewed: Yes Clinical Impression/Diagnosis: Abdominal pain Qualifiers: Abdominal location: right upper quadrant Qualified Code(s): R10.11 - Right upper quadrant pain Condition: Improved Disposition: HOME - Admission No - Follow up/Referral Referrals: ON STAFF,NOT [Primary Care Provider] - - Patient Discharge Instructions Patient Printed Discharge Instructions: Acute Abdominal Pain Additional Instructions: You came into the ER with abdominal pain which got better after we gave you IV hydration and other meds in the ER. We did a cat scan which showed no dangerous acute abnormalities. You must schedule a follow up with your primary care doctor in the next 3 to 5 days to make sure you no longer have abdominal pain, are feeling well and being taken care of. Come back to the ER if your pain worsens, you start vomiting, get a fever, or have any other new or worsening concerns. Thank you for coming to the [facility] ER. We hope you feel better soon! Print Language: CONGOLESE - Post Discharge Activity
[2019-08-28] MEDS ORDERED: ACETAMINOPHEN INJECTION 100 ML IVPB ONE (18:35)
[2019-08-28 19:23] LABS: PHOSPHOROUS 4.2 mg/dL (2.5-4.9)
--- NOTE | 2019-08-28 19:23 | PDOC ---
Attending Attestation - Resident Resident Name: David Lee - ED Attending Attestation I have performed the following: I have examined & evaluated the patient, The case was reviewed & discussed with the resident, I agree w/resident's findings & plan - HPI HPI: 08/28/19 19:51 see resident hpi - Physicial Exam PE: 08/28/19 19:51 agree with resident exam - Medical Decision Making 08/28/19 19:51 74-year-old male with history of partial colectomy with postprandial right upper quadrant abdominal pain Plan for CT scan of the abdomen and pelvis due to surgical history as well as right upper quadrant ultrasound EKG shows no acute ST segment elevation Labs including troponin as well Will likely admit pending imaging results
[2019-08-28 19:31] LABS: INR 0.99 (0.83-1.09); PROTHROMBIN TIME (PATIENT) 11.7 SEC (9.7-13.0)
[2019-08-28 19:33] LABS: ACTIVATED PTT 35.3 SECONDS (25.2-36.5)
[2019-08-28 19:36] LABS: BASO % 0.5 % (0-2.0); HEMATOCRIT 23.2 % (35.4-49); HEMOGLOBIN 8.3 GM/dL (11.7-16.9); LYMPH % 15.8 % (8-40); MCH 34.7 pg (25.7-33.7); MCHC 35.9 g/dl (32.0-35.9); MEAN CELL VOLUME 96.8 fl (80-96); MONO % 7.1 % (3.8-10.2); NEUT % 71.6 % (42.8-82.8); PLATELET COUNT 90 K/MM3 (134-434); RDW 15.2 % (11.9-15.9); WHITE BLOOD COUNT 5.6 K/mm3 (4.0-10.0)
[2019-08-28 19:49] LABS: ALBUMIN 3.2 g/dl (3.4-5.0); ALK PHOS 60 U/L (45-117); ANION GAP 5 MMOL/L (8-16); BILIRUBIN,TOTAL 0.3 mg/dL (0.2-1); BLOOD UREA NITROGEN 58.6 mg/dL (7-18); CALCIUM 8.2 mg/dL (8.5-10.1); CHLORIDE 115 mmol/L (98-107); CO2 20 mmol/L (21-32); CREATININE 3.1 mg/dL (0.55-1.3); GLUCOSE,RANDOM 114 mg/dL (74-106); LIPASE 355 U/L (73-393); POTASSIUM 5.3 mmol/L (3.5-5.1); SGOT/AST 13 U/L (15-37); SGPT/ALT 31 U/L (13-61); SODIUM 140 mmol/L (136-145); TOT PROT 5.8 g/dl (6.4-8.2)
[2019-08-28] MEDS ORDERED: MAG HYDROX/AL HYDROX/SIMETH 30 ML UNIT-DOSE CUP PO ONE (21:41)
[2019-08-28] MEDS ORDERED: MAG HYDROX/AL HYDROX/SIMETH 30 ML UNIT-DOSE CUP ONE (21:49)
[2019-08-28 21:50] LABS: EPI CELLS 0.1 /HPF (0-5/HPF); HYALINE CASTS 0 /lpf (0-8); URINE APPEARANCE CLEAR; URINE BACTERIA 4.4 /hpf (NEGATIVE); URINE BILIRUBIN NEGATIVE (NEGATIVE); URINE COLOR YELLOW; URINE GLUCOSE (UA) NEGATIVE (NEGATIVE); URINE KETONE NEGATIVE (NEGATIVE); URINE LEUK ESTERASE NEGATIVE (NEGATIVE); URINE NITRITE NEGATIVE (NEGATIVE); URINE PROTEIN 2+ (NEGATIVE); URINE RBC 2 /hpf (0-4); URINE UROBILINOGEN 0.2 mg/dL (0.2-1.0); URINE WBC 0 /hpf (0-5)
[2019-08-29 01:39] VITALS: BP 172/69; PULSE 67; TEMP 98.4
--- NOTE | 2019-08-29 11:57 | EKG ---
Test Reason : Blood Pressure : / mmHG Vent. Rate : 066 BPM Atrial Rate : 066 BPM P-R Int : 168 ms QRS Dur : 098 ms QT Int : 396 ms P-R-T Axes : 057 -23 060 degrees QTc Int : 415 ms NORMAL SINUS RHYTHM POSSIBLE ANTERIOR INFARCT , AGE UNDETERMINED ABNORMAL ECG WHEN COMPARED WITH ECG OF 12-JUL-2019 11:46, NO SIGNIFICANT CHANGE WAS FOUND Confirmed by SANTO LEES, JAQUELINE ([id number]) on 08/29/2019 11:57:10 AM Referred By: Confirmed By:JAQUELINE BLANCHARD MD
== END 2019-08-29 01:40 | disposition home or self-care (01) ==
LOC: JER 17:20
PROC: 3E033NZ Introduction of Analgesics, Hypnotics, Sedatives into Peripheral Vein, Percutaneous Approach (ICD-10-PCS; principal; 2019-08-28)
PROC: 3E033GC Introduction of Other Therapeutic Substance into Peripheral Vein, Percutaneous Approach (ICD-10-PCS; 2019-08-28)
DX: R10.11 Right upper quadrant pain (principal); C85.80 Other specified types of non-Hodgkin lymphoma, unspecified site; F03.90 Unspecified dementia, unspecified severity, without behavioral disturbance, psychotic disturbance, mood disturbance, and anxiety; E11.22 Type 2 diabetes mellitus with diabetic chronic kidney disease; I12.9 Hypertensive chronic kidney disease with stage 1 through stage 4 chronic kidney disease, or unspecified chronic kidney disease; N18.9 Chronic kidney disease, unspecified; Z88.2 Allergy status to sulfonamides
CPT/HCPCS: 36415; 74176-TC; 80053; 81003; 82550; 83605; 83690; 83735; 84100; 84484; 85025; 85610; 85730; 86850; 86900; 86901; 87086; 93005; 93010; 99283-25; J0131; J7030